=== PATIENT | male | born 1950 | race Caucasian/White ===

== ENCOUNTER 2019-11-16 21:10 | Inpatient (IN) | payer MEDICARE ==
[~2019-11-16 21:10] MED LIST: Iopamidol-370 76% 500 ML 1 ML ONE
[2019-11-16 21:30] LABS: #Basophils 0.1 thou/uL (0.0-0.2); #Monocytes 0.9 thou/uL (0.11-0.59); #Neutrophils 10.1 thou/uL (1.40-6.50); %Basophils 0.4 % (0.0-1.0); %Eosinophils 0.4 % (0.0-10.0); %Monocytes 7.2 % (0.0-10.0); Hemoglobin 15.1 g/dL (14.0-18.0); Mean Corpuscular Hemoglobin 28.9 pg (27.0-31.0); Mean Corpuscular Volume 90.1 fL (78.0-98.0); Mean Platelet Volume 8.5 fL (7.4-10.4); Platelet Count 273 thou/uL (130-400); RBC Distribution Width 12.8 % (11.5-14.5); Red Blood Cell (RBC) Count 5.23 mill/uL (4.70-6.10); White Blood Cell (WBC) Count 13.1 thou/uL (4.8-10.8)
[2019-11-16 21:39] LABS: PTT 35.8 SEC (22.9-36.1); Prothrombin Time 13.6 SEC (12.0-14.7)
[2019-11-16 21:41] LABS: ALT (SGPT) 14 U/L (8-55); AST (SGOT) 14 U/L (5-34); Albumin 4.3 g/dL (3.4-4.8); Alkaline Phosphatase 98 U/L (40-110); Anion Gap 12 mmol/L (10-20); BUN (Urea Nitrogen) 11 mg/dL (8.4-25.7); Bilirubin, Total 0.9 mg/dL (0.2-1.2); CK (CPK) 87 U/L (30-200); Calc. Creatinine Clearance 0 mL/min (70-130); Calcium 9.4 mg/dL (7.8-10.44); Carbon Dioxide 27 mmol/L (23-31); Chloride 105 mmol/L (98-107); Estimated GFR-MDRD 79; Globulin 3.1 g/dL (2.4-3.5); Glucose 107 mg/dL (80-115); Potassium 4.2 mmol/L (3.5-5.1); Protein, Total 7.4 g/dL (5.8-8.1); Sodium 140 mmol/L (136-145)
--- NOTE | 2019-11-16 21:54 | CT ---
Exam: Head CT without contrast HISTORY: Left facial numbness and ataxia. Level 2 stroke. Onset this morning. COMPARISON: none FINDINGS: Hemorrhage: No intraparenchymal hemorrhage or extra-axial hematoma. Brain parenchyma: Cortical [place]-white matter differentiation is preserved. No mass effect or midline shift. Basilar cisterns are patent.Minimal white matter hypodensities due to chronic small vessel ischemic change. Ventricular system: Ventricles and sulci are patent and symmetric. Calvarium: Intact. Sinuses and mastoid air cells: Minimal mucosal thickening of the paranasal sinuses IMPRESSION: No acute intracranial process. Results of study discussed with Dr. Moreland 11/16/2019 9:50 PM Code CR
[2019-11-16 22:07] LABS: CKMB 2.5 ng/mL (0-6.6)
[2019-11-16] MEDS ORDERED: Aspirin Chewable 81 MG TAB ONE (22:20)
--- NOTE | 2019-11-17 01:54 | HP ---
TIME OF ASSESSMENT: 2330 hours. CHIEF COMPLAINT: Left-sided weakness and numbness. HISTORY OF PRESENT ILLNESS: Mr. Ochoa is a 69-year-old gentleman with a known history of coronary artery disease, who has actually had an OH in the past and underwent a CABG x4, presenting with progressively and persisting left-sided numbness and weakness. The patient states he first noted his symptoms early hours this morning, when he got up to use the bathroom. He recently fractured his left lower leg and underwent surgery in September. He has his foot in a boot and has been able to walk with the help of a walker. The patient states he noticed some left upper extremity weakness with difficulty gripping onto the walker as he was moving to the bathroom. He also noted that his left leg was heavier than normal, and he was unable to pick it up causing him to drag the leg. The patient states he was not moving as quickly as he normally does with a walker, therefore did not make it to the bathroom on time. Though he does suffer from urinary urgency, he does not have issues with incontinence. When attempting to walk back to bed, he turned around and fell backwards hitting the back of his head against the wall. The patient did not lose any consciousness. He states he did not sustain any major injury, but states it was due to the weakness in his left upper extremity. He was able to get himself up and back into bed. The patient states he noted slight worsening in the weakness with numbness, affecting his left upper extremity. Later that morning, he spoke to his daughter around noon and told her about the events that had happened that morning. He states by then his symptoms had continued to gradually worsen. The patient is a poor historian, unable to exactly pinpoint in which way it had changed or worsened. While en route to the Emergency Department, the patient was unable to lift his arm. He also noted some numbness and tingling on the left side of his face. His daughter denies noting any facial droop. The patient has not had any slurred speech. The sensation has returned to his face, and he has not experienced any visual changes or dizziness. Since being in the Emergency Department, he has had further weakness of his left upper extremity and left lower extremity, no longer able to lift either one. Daughter states they are both anti-medications. He was recommended a statin and aspirin in the past following his OH. However, the patient did not have the prescriptions filled. They state he is agreeable to take any medications while in the hospital, however, will absolutely not take any medications at home nor fill any prescriptions given to him. ED COURSE: He has undergone a CT of the head, which shows no acute intracranial process. He was given of aspirin. A CT angiogram of the head and neck has been done. Report is pending. LABORATORY DATA: Laboratory studies have been done showing a white count of 13.1, hemoglobin 15.1, hematocrit 47.1, PT 13.6, and INR 1. Sodium 140, potassium 4.2, BUN 11, creatinine 0.95, GFR 79, glucose 107, and calcium 9.4. LFTs unremarkable. CK 87, CK-MB 2.5, troponin 0.033. Albumin 4.3. PAST MEDICAL HISTORY: 1. Coronary artery disease. 2. Previous OH. PAST SURGICAL HISTORY: 1. CABG x4. 2. Recent surgery following left lower tib-fib fracture in September 2019. SOCIAL HISTORY: The patient lives alone. He reports smoking one pack of cigarettes per day for several years. Reports occasional alcohol and occasionally he smokes marijuana. FAMILY HISTORY: Noncontributory. ALLERGIES: NO KNOWN DRUG ALLERGIES. CURRENT MEDICATIONS: None. PHYSICAL EXAMINATION: GENERAL: The patient appears thin, well developed, well nourished, he is in no acute distress. VITAL SIGNS: Temperature 97.9, pulse 80, blood pressure 175/65, respirations 18, and O2 saturation 98% on room air. HEENT: Normocephalic and atraumatic. Pupils are equal, round, and reactive to light. Extraocular movements intact. Oropharynx is clear. NECK: Supple. Full range of motion. No cervical spine tenderness. No tongue deviation. LUNGS: Clear to auscultation bilaterally without any wheezes, rales, or rhonchi. CARDIAC: Regular rate and rhythm. ABDOMEN: Soft, nontender, and nondistended. Normoactive bowel sounds present. No guarding or rigidity. No renal angle tenderness. EXTREMITIES: Slight swelling to the left lower extremity due to recent surgery, essentially stable per patient. Slight trace edema to the right lower extremity. The patient states this is chronic as well. NEUROLOGIC: Alert and oriented x3. Speech normal. Facial movements normal. Reports slightly reduced sensation on the left side of his face including forehead, cheek, and chin. Complete weakness of the left upper extremity. Slight movement in all fingers of his left hand, but power is 2/5. Unable to lift his arm. Power and sensation intact in the right upper extremity. Unable to lift his left lower leg. Able to plantar flex at about 2/5 in the left lower extremity. Sensation and power intact in the right lower extremity. Unable to assess his gait. INVESTIGATIONS: As mentioned above. IMPRESSION AND PLAN: Mr. Ochoa is a 69-year-old gentleman, who presents with progressively worsening and persisting left arm and leg weakness since early hours this morning. The patient has been given aspirin in the Emergency Department. He is agreeable to continue with aspirin and statin while he is here, but does not plan to take these once he is discharged. The patient has undergone a CT of the brain, which was unremarkable. CT angiogram report is pending. We will order MRI of the brain, neuro consult, echo, fasting lipid panel in the morning. The patient will be admitted to Stroke Unit. He has known history of coronary artery disease, but he is noncompliant with medications recommended in the past. Troponin is slightly bumped at 0.033. We will continue to trend troponin. No chest pain and EKG in the ED showed normal sinus rhythm, no ST-changes or T-wave abnormalities. The patient's case was discussed with Dr. Marcum, who agrees with plan of care as described above. We will give famotidine for GI prophylaxis. Code status, full. Surrogate decision maker is his daughter, Harvey Dimas. Job ID: [id number]
[2019-11-17] MEDS ORDERED: Melatonin 3 MG TAB PO SCH (03:00)
[2019-11-17] MEDS: Sodium Chloride 0.9% 1,000 ML IV SCH ×2 (04:27→13:25)
[2019-11-17 05:02] LABS: #Basophils 0.1 thou/uL (0.0-0.2); #Eosinphils 0.1 thou/uL (0.0-0.7); #Lymphocytes 2.2 thou/uL (1.20-3.40); #Monocytes 1.1 thou/uL (0.11-0.59); #Neutrophils 8.3 thou/uL (1.40-6.50); %Basophils 0.5 % (0.0-1.0); %Eosinophils 1.2 % (0.0-10.0); %Lymphocytes 18.4 % (21.0-51.0); %Monocytes 9.3 % (0.0-10.0); %Neutrophils 70.6 % (42.0-75.0); Hemoglobin 13.9 g/dL (14.0-18.0); Mean Corpuscular HGB CONC 31.9 g/dL (32.0-36.0); Mean Corpuscular Hemoglobin 28.7 pg (27.0-31.0); Mean Platelet Volume 8.7 fL (7.4-10.4); Platelet Count 249 thou/uL (130-400); RBC Distribution Width 12.6 % (11.5-14.5); Red Blood Cell (RBC) Count 4.84 mill/uL (4.70-6.10); White Blood Cell (WBC) Count 11.8 thou/uL (4.8-10.8)
[2019-11-17 05:21] LABS: Anion Gap 13 mmol/L (10-20); BUN (Urea Nitrogen) 10 mg/dL (8.4-25.7); Calc. Creatinine Clearance 0 mL/min (70-130); Calcium 9.2 mg/dL (7.8-10.44); Carbon Dioxide 24 mmol/L (23-31); Cardiac Risk 4.4 (Less than 4.5); Chloride 105 mmol/L (98-107); Cholesterol 157 mg/dl (< 200 Desired); Estimated GFR-MDRD 86; Glucose 97 mg/dL (80-115); HDL Cholesterol 36 mg/dL (>60 Neg Risk); LDL Cholesterol, Calculated 97 mg/dL; Potassium 3.7 mmol/L (3.5-5.1); Sodium 138 mmol/L (136-145); Triglycerides 121 mg/dL (Less than 150)
[2019-11-17 06:28] VITALS: BMI 23.6
--- NOTE | 2019-11-17 08:06 | CT ---
EXAM: CT ANGIOGRAM OF THE HEAD AND NECK INDICATION: Stroke COMPARISON: None TECHNIQUE: CT angiogram of the head and neck are performed in the axial plane. Three-dimensional refo rmatted images are submitted for interpretation. FINDINGS: CTA OF THE HEAD WITH AND WITHOUT CONTRAST: POSTCONTRAST CT OF BRAIN: Pathologic enhancement: No pathologic enhancement the brain. CTA OF THE BRAIN: Intracranial internal carotid arteries:Symmetric and appropriate enhancement/luminal diameter of the distal cervical and petrous segment of both intracranial internal carotid arteries. There is atherosclerosis involving both cavernous and paraclinoid segments. There does appear to be short segm ent moderate stenosis of the left and right cavernous segment. Anterior circulation: Symmetric enhancement and luminal diameter the A1 segments, M1 segments, proxim al A2 segments and proximal MCA branches. Intracranial vertebral arteries: Patent with appropriate enhancement and luminal diameter. Bilateral PICA artery origins are unremarkable. Both vertebral arteries supply a normal caliber basilar artery. Posterior circulation: Appropriate enhancement and luminal diameter of the basilar artery. Bilateral P1 segments have appropriate enhancement and luminal diameter. IMPRESSION: 1. No hemodynamically significant stenosis, occlusion or aneurysmal formation, the level [place]. 2. Moderate short segment stenosis involving the cavernous segment of both intracranial internal [place] arteries. Transcribed Date/Time: 11/16/2019 11:52 PM
[2019-11-17] MEDS: Famotidine 20 MG TAB PO SCH ×2 (09:43→21:57)
[2019-11-17] MEDS: Aspirin 81 mg Enteric Coated Tablet PO SCH (09:43)
--- NOTE | 2019-11-17 10:23 | MRI ---
MRI BRAIN NONCONTRAST: DATE: 11/17/2019 HISTORY: 69-year-old male with stroke. Complete left-sided weakness. COMPARISON: No prior MRIs. FINDINGS: Images are degraded by patient motion. There is an approximately 1.7 x 0.8 cm focus of moderately hyp erintense T2 signal, with strongly restricted diffusion, in the lateral aspect of the right thalamus, at the junction with the posterior limb of the internal capsule. No associated hemorrhage. No mass e ffect, midline shift, or extra-axial fluid collection. Mild chronic ischemic white matter changes. Ve ntricles are normal in size and configuration. Flow-voids are maintained in the major arteries of the [place]. IMPRESSION: Acute infarction in the right thalamus at junction with posterior limb of right internal capsule. RODOLFO Watters POS: TPC
--- NOTE | 2019-11-17 15:06 | PDOC.HOSPP ---
- Subjective Encounter Date: 11/17/19 Encounter Time: 15:04 Subjective: Patient is still unable to move left arm and left leg. Stated that on Thursday he went out, then got very tired and achy a ll over the following day. Took some hydrocodone. Next morning he fell in the bathroom. He called EMS, they told him he had no stroke symptoms. He went to hospital anyways after getting second opinion. He takes aspirin for an CA, does not take statin. He doesn't understand what caused his stroke Reports history of neuropathy for five years, doesn't know the cause Patient lives 65 miles from [place], is nervous about rehab. He was getting PT as an outpatient already for a leg fracture - Objective Vital Signs & Weight: Vital Signs (12 hours) Temp Pulse Resp BP BP BP Pulse Ox 11/17/19 12:26 97.2 F L 70 14 135/73 94 L 11/17/19 09:46 134/60 124/74 11/17/19 09:35 96 11/17/19 07:13 97.6 F 75 18 120/74 96 Weight Weight 174 lb 3.2 oz I&O: 11/16/19 11/17/19 11/18/19 06:59 06:59 06:59 Output Total 100 Balance -100 Result Diagrams: 11/17/19 04:33 11/17/19 04:33 Additional Labs: Accuchecks 11/16/19 21:23 POC Glucose 91 Hospitalist ROS - Medication Medications: Active Medications Generic Name Dose Route Start Last Admin Trade Name Giovanniq PRN Reason Stop Dose Admin Aspirin 81 mg 11/17/19 09:00 11/17/19 09:43 Ecotrin PO 81 mg DAILY LAKSHMI Administration Famotidine 20 mg 11/17/19 09:00 11/17/19 09:43 Pepcid PO 20 mg BID LAKSHMI Administration Sodium Chloride 1,000 mls @ 75 mls/hr 11/16/19 23:45 11/17/19 13:25 Normal Saline 0.9% IV Not Given .[id number] LAKSHMI - Exam General Appearance: NAD, awake alert Eye: PERRL, anicteric sclera ENT: normocephalic atraumatic, no oropharyngeal lesions Neck: supple, symmetric, no JVD, no thyromegaly Heart: RRR, no murmur, no gallops, no rubs, normal peripheral pulses Respiratory: CTAB, no wheezes, no rales, no ronchi Gastrointestinal: soft, non-tender, non-distended, normal bowel sounds Extremities: no cyanosis, no clubbing, no edema Skin: normal turgor, no lesions, no rashes Neurological: cranial nerve grossly intact Neurological - other findings: left upper extremity 0/5. LLE 0/5 Hosp A/P - Plan This is 69 year old male with history of CA in the past who presented after a fall/ Found to have left sided weakness, admitted for stroke Acute right thalamus infarct - started aspirin 81, atorvastatin 40 mg - neuro consult pending - ECHO done and pending - check TSh, Hba1C - monitor on telemetry - PT/OT, will need rehab CAD s/p CA in the past - continue aspirin and statin Leukocytosis - improving, will monitor Elevated troponin - no chest pain currently - ECHO pending - will trend Dispo: will need inpatient rehab
[2019-11-17 15:54] LABS: Hemoglobin A1c 5.7 % (4.0-6.0)
[2019-11-17 16:14] LABS: Syphilis Antibody Nonreactive (Nonreactive); Syphilis Antibody Index 0.04 S/CO (<1.00 Non-Reactive)
--- NOTE | 2019-11-17 21:17 | CON ---
DATE OF CONSULTATION: 11/17/2019 CONSULTING PHYSICIAN: Hospitalist Services. IMPRESSION: 1. Small vessel stroke involving the right thalamus and internal capsule resulting in a fairly significant left hemiparesis and sensory deficit. 2. Aspirin failure. 3. Tobacco use. PLAN: 1. Add Plavix. 2. Add a statin. 3. Discontinue smoking. 4. Rehab transfer. HISTORY OF PRESENT ILLNESS: Mr. Ochoa is a 69-year-old gentleman with a past history of coronary disease. He was taking an aspirin daily. He started noticing some subtle weakness on the left side when he was trying to walk with his walker and he recently fractured his left foot. He continued to ignore the symptoms over the day and went to bed that night. Next day, he felt like the symptoms were a bit worse. He was seen by EMS and initially was not thought to be having any significant problems. Later on that day his daughter thought the situation was worsening and she had him reassessed. They brought him into the hospital for evaluation. His MRI confirmed a right thalamic and internal capsule stroke. His past echocardiogram showed a normal ejection fraction of 60% to 65% 2 years ago. His CTA did not show any proximal vessel stenosis. EKG showed a normal sinus rhythm. His cholesterol ratio was 6.4. He has not seen any significant improvement since his deterioration. PAST MEDICAL HISTORY: Coronary artery disease. ALLERGIES: NONE. SOCIAL HISTORY: Positive for tobacco. No illicit drugs other than marijuana. FAMILY HISTORY: Noncontributory. REVIEW OF SYSTEMS: Ten-system review of systems is otherwise negative. PHYSICAL EXAMINATION: GENERAL: He is a healthy-appearing gentleman sitting at the bedside. No acute distress. VITAL SIGNS: Pulse 75 in a sinus rhythm, respirations 16. HEENT: Pupils equal and reactive. Conjunctivae clear. Oropharynx clear. NECK: Supple. No lymphadenopathy. EXTREMITIES: There are bandages around the left leg with some ecchymosis of the toes. NEUROLOGIC: He was alert and cooperative. Speech is fluent and clear. He has some subtle left facial weakness. Sensation was decreased in a patchy area of the face and arm. He had no antigravity strength in the left arm. He had some weak movement in the left leg that was against gravity. Gait was not tested. No abnormal movements were seen. SUMMARY: This is a 69-year-old gentleman with a small vessel stroke that progressed over a 2 day interval. His deficits are quite severe at this point. We would continue his aspirin, add Plavix and a statin to address his hyperlipidemia and plan on transferring him to rehab. Job ID: [id number]
[2019-11-17] MEDS: Atorvastatin Calcium 40 MG TAB PO SCH (21:57)
[2019-11-18] MEDS: Sodium Chloride 0.9% 1,000 ML IV SCH ×2 (01:25→16:39)
[2019-11-18] MEDS: Lisinopril 2.5 MG TAB PO SCH (08:23)
[2019-11-18] MEDS: Aspirin 81 mg Enteric Coated Tablet PO SCH (08:23)
[2019-11-18] MEDS: Clopidogrel Bisulfate 75 MG TAB PO SCH (08:24)
[2019-11-18] MEDS: Famotidine 20 MG TAB PO SCH ×2 (08:24→20:48)
[2019-11-18] MEDS ORDERED: Metoprolol Tartrate 25 MG TAB PO SCH (09:00)
--- NOTE | 2019-11-18 10:26 | CON ---
DATE OF CONSULTATION: 11/18/2019 REASON FOR CONSULTATION: Ischemic cardiomyopathy. HISTORY OF PRESENT ILLNESS: Mr. Ochoa is a 69-year-old gentleman, who recently presented with CVA. Mr. Ochoa has a previous history of CAD, status post bypass surgery x4 after having a non-Q-wave OR. This was 17 years ago (2002). He underwent coronary angiography by Dr. Raf Mahan and underwent bypass surgery by . His LVEF in 2003 was 30% to 35% with posterior wall akinesis. The patient denies shortness of breath, chest pain, pressure, or associated symptoms. He recently presented with left-sided weakness. He has weaned himself off all medications shortly after bypass surgery. He has not been seen or evaluated by Cardiology in 17 years. PAST MEDICAL HISTORY: As above including recent surgery for tib-fib fracture. MEDICATION: None. SOCIAL HISTORY: Positive for tobacco use. ALLERGIES: NONE. HOME MEDICATIONS: None. REVIEW OF SYSTEMS: A 10-point review of systems is reviewed as above, otherwise negative. PHYSICAL EXAMINATION: VITAL SIGNS: Blood pressure 150/69, pulse 67, temperature 98.3. GENERAL: Patient is a pleasant male who is in no acute distress. The patient appears their stated age. NEUROLOGIC: Left sided weakness. HEENT: Sclerae without icterus. Mouth has moist mucous membranes with normal pallor. NECK: No JVD. Carotid upstroke brisk. No bruits bilaterally. LUNGS: Clear to auscultation with unlabored respirations. BACK: No scoliosis or kyphosis. CARDIAC: Regular rate and rhythm with normal S1 and S2. No S3 or S4 noted. No significant rubs, murmurs, thrills, or gallops noted throughout the precordium. PMI is not displaced. There is no parasternal heave. ABDOMEN: Soft, nontender, nondistended. No peritoneal signs present. No hepatosplenomegaly. No abnormal striae. EXTREMITIES: 2+ femoral and 2+ dorsalis pedis pulses. No cyanosis, clubbing, or edema. SKIN: No gross abnormalities. EKG shows normal sinus rhythm with inferior infarct, age old. Telemetry monitoring shows four beats of nonsustained VT. IMPRESSION: 1. Chronic ischemic cardiomyopathy. 2. Recent cerebrovascular accident. 3. Tobacco abuse. 4. Noncompliance. RECOMMENDATIONS: I had a long discussion with Mr. Ochoa on how to proceed from a CV standpoint. I would recommend HERNAN inhibitor therapy, beta-blaze therapy, statin, aspirin and Plavix per Dr. Chris Faustin's recommendation. Mr. Ochoa is unsure whether he is prepared to start taking medications again. I also discussed LifeVest with Mr. Ochoa. Recommend LifeVest for three months given that he is not on any medications for LVEF improvement. Again, he is very reluctant to proceed with LifeVest. From my standpoint, the patient is not interested in medical therapy or LifeVest would not have any additional recommendations. He is to discuss the case with his family and let the nurse know how he has opted. Also discussed the case with Dr. Bell. Otherwise, I have no further recommendations. Job ID: [id number]
--- NOTE | 2019-11-18 11:07 | PDOC.HOSPP ---
- Subjective Encounter Date: 11/18/19 Encounter Time: 11:06 Subjective: The patient's weakness is better. He is able to lift up his left arm and left leg some today. No shortness of breath or chest pain. He was seen by cardiology today, declined life vest. Advised him to take aspirin , plavix, statin, metoprolol, lisinopril. He would like a handout of these medications. He says he will take them during rehab, but will not promise to take them after rehab. He also is not sure he will see a founder and ceo on discharge, but will consider seeing a primary care doctor. Says he has a lot of "thinking to do." Patient does admit to smoking. He will consider nicotine patch on d/c if he has bad cravings. He is very interested in going to rehab - Objective Vital Signs & Weight: Vital Signs (12 hours) Temp Pulse Resp BP BP Pulse Ox 11/18/19 08:28 94 L 11/18/19 08:23 71 152/69 H 11/18/19 07:00 98.3 F 67 16 152/69 H 94 L 11/18/19 03:14 98.9 F 71 18 144/74 H 96 11/17/19 23:40 97.9 F 72 18 133/69 97 Weight Weight 174 lb 3.2 oz I&O: 11/17/19 11/18/19 11/19/19 06:59 06:59 06:59 Intake Total 1340 Output Total 700 Balance 640 Result Diagrams: 11/17/19 04:33 11/17/19 04:33 Hospitalist ROS - Review of Systems Constitutional: denies: fever, chills - Medication Medications: Active Medications Generic Name Dose Route Start Last Admin Trade Name Freq PRN Reason Stop Dose Admin Aspirin 81 mg 11/17/19 09:00 11/18/19 08:23 Ecotrin PO 81 mg DAILY LAKSHMI Administration Atorvastatin Calcium 40 mg 11/17/19 21:00 11/17/19 21:57 Lipitor PO 40 mg HS LAKSHMI Administration Clopidogrel Bisulfate 75 mg 11/18/19 09:00 11/18/19 08:24 Plavix PO 75 mg DAILY LAKSHMI Administration Famotidine 20 mg 11/17/19 09:00 11/18/19 08:24 Pepcid PO 20 mg BID LAKSHMI Administration Sodium Chloride 1,000 mls @ 75 mls/hr 11/16/19 23:45 11/18/19 01:25 Normal Saline 0.9% IV 1,000 mls .[id number] LAKSHMI Administration Lisinopril 2.5 mg 11/18/19 09:00 11/18/19 08:23 Zestril PO 2.5 mg DAILY LAKSHMI Administration - Exam General Appearance: NAD, awake alert Eye: PERRL, anicteric sclera ENT: normocephalic atraumatic, no oropharyngeal lesions Neck: no JVD Heart: RRR, no murmur, no gallops, no rubs Respiratory: CTAB, no wheezes, no rales, no ronchi Gastrointestinal: soft, non-tender, non-distended, normal bowel sounds Extremities: no cyanosis, no clubbing, no edema Skin: no lesions, no rashes Neurological - other findings: LUE 4/5, LLE 4/5, RUE 5/5, RLE 5/5. Reflexes 2+ bilaterally Musculoskeletal - other findings: HERNAN bandage on left leg Psychiatric: normal affect, normal behavior, A&O x 3 Hosp A/P - Plan CT brain: no acute disease CTA head: moderate stenosis involving both intracranial internal carotid arteries MRI brain: acute infarction in the right thalamus with posterior limb of internal capsule This is 69 year old male with history of ID in the past who presented after a fall/ Found to have left sided weakness, admitted for stroke Acute right thalamus infarct - started aspirin 81, atorvastatin 40 mg. Added plavix per neurology recommendations - ECHO showed EF 30-35%, mild MR, mild TR, inferolateral akinesis. 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 Cardiology consulted, patient declined life vest - continue aspirin, statin, plavix - add metoprolol 12.5 mg daily, lisinopril 2.5 mg daily - needs to follow up with founder and ceo as an outpatient CAD s/p CABG - continue aspirin and statin Prediabetes - HbA1C 5.7. Needs outpatient monitoring Leukocytosis - improving, will monitor Elevated troponin - no chest pain currently - ECHO pending - will trend Tobacco abuse -advised on smoking cessation Dispo: will need inpatient rehab, he is stable for discharge
[2019-11-18 17:27] LABS: ANA Symphony (Qualitative) Negative (Negative); ANA Symphony (Quantitative) 0.3 Ratio (< 0.7 Negative); dsDNA IgG Antibody 4.7 IU/mL (<10 Negative)
[2019-11-18] MEDS: Nicotine 14 MG PATCH TD SCH (19:04)
[2019-11-18] MEDS: Atorvastatin Calcium 40 MG TAB PO SCH (20:48)
[2019-11-18] MEDS ORDERED: Cyclobenzaprine 10 MG TAB PO SCH (23:30)
[2019-11-19] MEDS: Clopidogrel Bisulfate 75 MG TAB PO SCH (08:38)
[2019-11-19] MEDS: Lisinopril 2.5 MG TAB PO SCH (08:38)
[2019-11-19] MEDS: Aspirin 81 mg Enteric Coated Tablet PO SCH (08:38)
[2019-11-19] MEDS: Carvedilol 3.125 MG TAB PO SCH ×2 (08:38→15:55)
[2019-11-19] MEDS: Famotidine 20 MG TAB PO SCH (08:38)
[2019-11-19] MEDS ORDERED: Lisinopril 2.5 MG TAB PO SCH (09:00)
--- NOTE | 2019-11-19 15:19 | PDOC.HOSPP ---
- Subjective Encounter Date: 11/19/19 Encounter Time: 15:17 Subjective: Mr. Ochoa was seen today in follow-up of right Thalamic CVA. He does not have any new complaints. - Objective Vital Signs & Weight: Vital Signs (12 hours) Temp Pulse Resp BP BP Pulse Ox 11/19/19 11:35 98.1 F 72 20 160/86 H 100 11/19/19 11:20 67 161/74 H 11/19/19 08:38 67 161/74 H 11/19/19 08:04 97.7 F 67 16 161/74 H 97 11/19/19 05:25 151/72 H 11/19/19 04:00 98 F 71 16 192/85 H 99 Weight Weight 174 lb 3.2 oz I&O: 11/18/19 11/19/19 11/20/19 06:59 06:59 06:59 Intake Total 1340 450 Output Total 700 Balance 640 450 Result Diagrams: 11/17/19 04:33 11/17/19 04:33 Hospitalist ROS - Medication Medications: Active Medications Generic Name Dose Route Start Last Admin Trade Name Giovanniq PRN Reason Stop Dose Admin Aspirin 81 mg 11/17/19 09:00 11/19/19 08:38 Ecotrin PO 81 mg DAILY LAKSHMI Administration Atorvastatin Calcium 40 mg 11/17/19 21:00 11/18/19 20:48 Lipitor PO 40 mg HS LAKSHMI Administration Carvedilol 3.125 mg 11/19/19 08:00 11/19/19 08:38 Coreg PO 3.125 mg BID-WM LAKSHMI Administration Clopidogrel Bisulfate 75 mg 11/18/19 09:00 11/19/19 08:38 Plavix PO 75 mg DAILY LAKSHMI Administration Famotidine 20 mg 11/17/19 09:00 11/19/19 08:38 Pepcid PO 20 mg BID LAKSHMI Administration Lisinopril 5 mg 11/19/19 09:00 11/19/19 11:20 Zestril PO Not Given BID LAKSHMI Nicotine 14 mg 11/18/19 17:00 11/18/19 19:04 Nicoderm Patch TD 14 mg Q24HR LAKSHMI Administration - Exam Eye: PERRL Heart: RRR, no murmur, no gallops, no rubs, normal peripheral pulses Respiratory: CTAB, no wheezes, no rales, no ronchi, normal chest expansion Gastrointestinal: soft, non-tender, non-distended, normal bowel sounds, no palpable masses, no hepatomegaly Extremities: no cyanosis, no clubbing, no edema Neurological: hemiplegia (Left hemiplegia) Hosp A/P (1) Acute CVA (cerebrovascular accident) Code(s): I63.9 - CEREBRAL INFARCTION, UNSPECIFIED Status: Acute (2) Hypertension Code(s): I10 - ESSENTIAL (PRIMARY) HYPERTENSION Status: Chronic (3) Dyslipidemia Code(s): E78.5 - HYPERLIPIDEMIA, UNSPECIFIED Status: Chronic (4) CAD (coronary artery disease) Code(s): I25.10 - ATHSCL HEART DISEASE OF [place] CORONARY ARTERY W/O ANG PCTRS Status: Chronic - Plan * Acute CVA- continue Aspirin, Plavix, and lipitor * Chronic systolic heart failure- continue Coreg, and Lisionpril * HTN- blood pressure has been a bit labile- will monitor * Continue PT/OT * Awaiting Rehab transfer
[2019-11-19] MEDS: Nicotine 14 MG PATCH TD SCH (15:55)
[2019-11-19 16:29] VITALS: BP 155/79; TEMP 97.1
[2019-11-19] MEDS ORDERED: Cyclobenzaprine 10 MG TAB PO SCH (21:00)
--- NOTE | 2019-11-21 12:33 | DIS ---
DATE OF ADMISSION: 11/16/2019 DATE OF DISCHARGE: 11/19/2019 DISCHARGE DISPOSITION: To inpatient rehab. DISCHARGE DIAGNOSES: 1. Acute right thalamic infarct. 2. Hypertension. 3. History of coronary artery disease. 4. Dyslipidemia. 5. Chronic systolic heart failure. DISCHARGE MEDICATIONS: Include, 1. Nicoderm patch 14 mg daily. 2. Lisinopril 5 mg twice a day. 3. Pepcid 20 mg twice daily. 4. Flexeril 10 mg at bedtime. 5. Plavix 75 mg daily. 6. Carvedilol 3.125 mg twice daily. 7. Lipitor 40 mg at bedtime. 8. Aspirin 81 mg a day. CODE STATUS: Full code. ALLERGIES: NO KNOWN DRUG ALLERGIES. IMAGING STUDIES: During his hospital stay, the patient had a CT cahto of [place] showing no hemodynamically significant stenosis, occlusion, or aneurysm at the level of the cahto of [place]. There was a moderate short stenosis involving the cavernous segment of both intracranial internal carotid arteries. The patient had an echocardiogram, in which, the ejection fraction was estimated at 30% to 35%. There was grade 1/3 diastolic dysfunction and some aortic valve sclerosis. The patient had an MRI of the brain, in which, there was an acute infarct in the right thalamus at the junction of the posterior limb of the right internal capsule. HOSPITAL COURSE: Mr. Ochoa is a pleasant 69-year-old gentleman, who presented to the emergency room with left-sided hemiparesis with also weakness and numbness. He was evaluated and found to have an acute right thalamic infarct. He was started on aspirin and Plavix as well as Lipitor. The patient had an echocardiogram done in the workup and was found to have chronic systolic heart failure with an EF of 30% to 35%. He was evaluated by the Cardiology Team. It was recommended that he be fitted to have a LifeVest. However, the patient refused this and he also told both myself and the previous physician that he plans to not take the prescribed medications once he leaves rehab. He says he does not believe in medications and will take his risks with regard to future stroke. He said he did the same thing when he had a heart attack and bypass surgery. He says he took himself off all medications and has done well for 20 years. I did explain the benefits of the medications including potentially improving his ejection fraction. The beta blockers use with regard to reduce the risk of arrhythmias and also I explained the purpose of the LifeVest with regard to prevent sudden . He voiced understanding of all of this, but says that he will exercise his right to refuse medications. Given this, once the patient was stabilized, he is being transferred to the inpatient rehabilitation unit today. Job ID: [id number]
== END 2019-11-19 19:20 | DRG 65 ==
LOC: ERS 21:10 → ERHOLD 23:14 → OBSVTOIN 23:42 → 2SE 11-17 00:14
PROVIDERS: ADMIT Hospitalist; ATTEND Emergency Medicine
DX: I63.9 Cerebral infarction, unspecified (principal); I50.22 Chronic systolic (congestive) heart failure; G81.94 Hemiplegia, unspecified affecting left nondominant side; I11.0 Hypertensive heart disease with heart failure; I25.10 Atherosclerotic heart disease of native coronary artery without angina pectoris; E78.5 Hyperlipidemia, unspecified; I25.2 Old myocardial infarction; Z95.1 Presence of aortocoronary bypass graft; R40.2412 Glasgow coma scale score 13-15, at arrival to emergency department; R20.0 Anesthesia of skin; F17.210 Nicotine dependence, cigarettes, uncomplicated; R79.89 Other specified abnormal findings of blood chemistry; I25.5 Ischemic cardiomyopathy; R73.03 Prediabetes; Z71.6 Tobacco abuse counseling; Z91.14 Patient's other noncompliance with medication regimen; W18.39XA Other fall on same level, initial encounter; Y93.89 Activity, other specified; Y92.092 Bedroom in other non-institutional residence as the place of occurrence of the external cause
CPT/HCPCS: 36415; 36416; 70450; 70496; 70551; 80048; 80053; 80061; 82550; 82553; 82607; 83036; 84443; 84484; 85025; 85610; 85730; 86038; 86225; 86780; 93005; 93306; Q9967

== ENCOUNTER 2020-03-22 17:31 | Inpatient (IN) | payer MEDICARE ==
[2020-03-22 18:14] LABS: #Eosinphils 0.1 thou/uL (0.0-0.7); #Lymphocytes 1.6 thou/uL (1.20-3.40); #Monocytes 0.6 thou/uL (0.11-0.59); %Basophils 0.5 % (0.0-1.0); %Eosinophils 1.6 % (0.0-10.0); %Monocytes 7.6 % (0.0-10.0); %Neutrophils 71.4 % (42.0-75.0); Hemoglobin 14.4 g/dL (14.0-18.0); Mean Corpuscular HGB CONC 32.3 g/dL (32.0-36.0); Mean Platelet Volume 7.6 fL (7.4-10.4); Platelet Count 262 thou/uL (130-400); RBC Distribution Width 12.9 % (11.5-14.5); Red Blood Cell (RBC) Count 4.79 mill/uL (4.70-6.10); White Blood Cell (WBC) Count 8.3 thou/uL (4.8-10.8)
[2020-03-22] MEDS ORDERED: Morphine 4 MG/ML VIAL ONE (18:24)
[2020-03-22] MEDS ORDERED: Vancomycin 1 GM/200 ML BAG ONE (18:24)
[2020-03-22] MEDS ORDERED: Piperacillin/Tazobactam 4.5 GM VIAL ONE (18:24)
--- NOTE | 2020-03-22 18:29 | RAD ---
2 views left tibia/fibula: 03/22/2020 COMPARISON: None HISTORY: Trauma status post ORIF 5 months ago. Over the past 2 weeks the patient reports progressive redness and swelling in the region of the medial malleolus FINDINGS: There is an obliquely oriented fracture of the distal left tibial shaft treated with an int ramedullary ronald with a distal interlocking screw and 2 proximal interlocking screws. There is an obliquely oriented fracture involving the proximal shaft and the distal shaft of the left fibula as w ell. No significant interval healing of these fractures is noted. There is diffuse soft tissue swelling involving the calf. There is a skin defect medial to the medial malleolus consistent with a soft tissue wound. The tibia and fibula distally is osteopenia, likely on the basis of disuse. IMPRESSION: Fracture status post ORIF. Diffuse soft tissue swelling suggesting cellulitis with skin u lceration adjacent to the medial malleolus.
[2020-03-22 18:38] LABS: ALT (SGPT) 17 U/L (8-55); AST (SGOT) 18 U/L (5-34); Albumin 4.5 g/dL (3.4-4.8); Alkaline Phosphatase 99 U/L (40-110); Anion Gap 12 mmol/L (10-20); BUN (Urea Nitrogen) 12 mg/dL (8.4-25.7); Bilirubin, Total 0.7 mg/dL (0.2-1.2); Calc. Creatinine Clearance 0 mL/min (70-130); Calcium 9.9 mg/dL (7.8-10.44); Carbon Dioxide 28 mmol/L (23-31); Chloride 104 mmol/L (98-107); Estimated GFR-MDRD 72; Globulin 3.2 g/dL (2.4-3.5); Glucose 93 mg/dL (80-115); Potassium 3.8 mmol/L (3.5-5.1); Protein, Total 7.7 g/dL (5.8-8.1); Sodium 140 mmol/L (136-145)
--- NOTE | 2020-03-22 21:10 | HP ---
PRIMARY CARE PHYSICIAN: The patient has a primary care in [place], [place], and it is [facility]. CHIEF COMPLAINT: Blistering and redness of my legs. HISTORY OF PRESENT ILLNESS: Mr. Ochoa is a pleasant 69-year-old gentleman, who has a history of coronary artery disease as well as chronic systolic heart failure. His ejection fraction is around 20% to 25% based on echo in October of this year. He had refused LifeVest placement at that time. He says that about 2 weeks ago, he started having some areas of blisters popping up on his legs. He says he thought it might be shingles and so he was trying to wait it out, thinking it would go away on its own. However, it did not and then he looked down and noticed that his legs were becoming more and more swollen and that he had a "puddle of blood in the floor." He denies having any fever or chills. He went to see his primary care provider and was prescribed antibiotics. He cannot remember the name. He says he was on them for about 14 days, but his symptoms did not get any better. He also notes the area on his ankle, which he says is an ulcer that popped up because when he had surgery for his tib-fib fracture, the screws migrated and since then he has had a chronic ulcer in that area. He was evaluated in the ER and had findings concerning for severe cellulitis and possible gangrene and for this reason, he is being admitted. REVIEW OF SYSTEMS: All systems were reviewed and are negative except for that mentioned in the history of present illness. PAST MEDICAL HISTORY: Significant for coronary artery disease, chronic systolic heart failure with an EF of actually 30% to 35% and grade 1/3 diastolic dysfunction, peripheral vascular disease. He has had a previous cerebrovascular accident. PAST SURGICAL HISTORY: He has had bypass grafting tib-fib fracture and repair in 2019 and tonsillectomy. ALLERGIES: NO KNOWN DRUG ALLERGIES. SOCIAL HISTORY: He is . He is a former smoker. He quit in October of this year. He smokes about a pack a day for the last 50 years. Denies any alcohol use. He has one child and he wants to be a DNR. FAMILY HISTORY: Significant for mother, who had cerebrovascular disease. CURRENT MEDICATIONS: He is not sure of the names and doses. These will need to be reconciled, but he says he has been compliant on his medicines. When he was discharged back in October, he had been on: 1. Plavix 75 mg daily. 2. Carvedilol 3.125 mg twice daily. 3. Lipitor 40 mg at bedtime. 4. Aspirin 81 mg a day. 5. Lisinopril 5 mg twice a day. 6. Nicoderm patch. 7. Pepcid 20 mg twice a day. PHYSICAL EXAMINATION: GENERAL: He is alert and oriented. He appears to be in no acute distress. He is well developed and well nourished, however, he does appear to be chronically ill. VITAL SIGNS: Blood pressure was 162/90, heart rate of 80, respiratory rate of 16, temperature is 98.2, and O2 saturation is 100% on room air. HEENT: Pupils are equal, round, and reactive. Extraocular muscles are intact. His sclerae anicteric. Throat, there is no erythema, no exudates. NECK: No adenopathy. No bruits. LUNGS: Clear to auscultation except for some mild rhonchi scattered. CARDIOVASCULAR: He has normal S1, S2. Slight grade 2/6 systolic murmur. ABDOMEN: Obese. It is soft, nontender, and nondistended. Positive for bowel sounds. No rebound. No guarding. No organomegaly. EXTREMITIES: He has bilateral lower extremity edema with erythema on both lower legs, but the left leg is much worse than the right. He has some bullous lesions on the anterior aspect of the barclay, which appear to have some purulent exudate and on the medial malleolus, he has an ulcerative area with purplish black base. He also has some chronic venous stasis changes. NEUROLOGIC: His cranial nerves are intact. Muscle strength is 5/5 in both upper and lower extremities. SKIN AND INTEGUMENT: As previously mentioned. He has chronic venous stasis changes, erythema. However, he does have good capillary refill, but I am unable to palpate either dorsalis pedis or posterior tibial pulse. LABORATORY DATA: Lab results: White blood cell count 8.3, hemoglobin 14.4, hematocrit is 44.6, and platelet count is 262. Sodium 140, potassium 3.8, chloride is 104, CO2 is 28, BUN of 12, creatinine 1.02, glucose is 93. C-reactive protein is 0.68 fibula, he has evidence of an ORIF, some soft tissue swelling suggestive of cellulitis and ulceration around the medial malleolus. ASSESSMENT: This is a pleasant 69-year-old gentleman, who presents to the ER with severe cellulitis of the left lower extremity which has failed outpatient treatment. He also has significant findings of peripheral vascular disease clinically. He will be admitted to the medical floor, started on IV antibiotics for broad-spectrum coverage, and we will place him on vancomycin and Zosyn for now. Culture the wound and consult General Surgery for evaluation. We will also need to get an arterial Dopplers to start and I suspect that he may need a CT angiography or angiography of the lower extremities for further delineation of the circulation. 1. Coronary artery disease. This appears to be clinically stable. We will continue him on his cardiac medications. 2. Chronic systolic heart failure. He still says that if his ejection fraction is low, he will not get a LifeVest. He also wants to be DNR. An echo may be entertained if he requires some type of re-vascularization surgery. Otherwise, we will hold off on this and continue his home medications. 3. History of cerebrovascular accident. This appears to be clinically stable. Job ID: [id number]
[2020-03-22] MEDS ORDERED: Labetalol HCl 100 MG/20 ML VIAL SLOW IVP PRN (21:14)
[2020-03-22] MEDS ORDERED: Acetaminophen 325 MG TAB PO PRN (21:14)
[2020-03-22] MEDS ORDERED: hydrALAZINE 20 MG/ML VIAL SLOW IVP PRN (21:14)
[2020-03-22] MEDS ORDERED: Ondansetron ODT 4 MG TAB PO PRN (21:14)
[2020-03-22] MEDS ORDERED: Vancomycin 1 GM in Premix Bag 1 BAG IVPB SCH (21:14)
[2020-03-22] MEDS ORDERED: Ondansetron PF 4 MG/2 ML Vial IVP PRN (21:14)
[2020-03-22 23:58] VITALS: BMI 24.3
[2020-03-23] MEDS: HYDROcodone/Acetaminophen 5/325 mg Tablet PO PRN ×5 (00:27→18:03)
[2020-03-23] MEDS: Piperacillin/Tazobactam 3.375 GM in Sodium Chloride 0.9% 100 ML IVPB SCH ×4 (00:28→17:55)
[2020-03-23] MEDS: Famotidine 20 MG TAB PO SCH ×3 (00:29→20:52)
[2020-03-23] MEDS ORDERED: traMADol HCl 50 MG TAB PO PRN (01:46)
[2020-03-23] MEDS: traMADol HCl 50 MG TAB PO PRN ×2 (02:32→20:53)
[2020-03-23] MEDS: Vancomycin HCl 1.25 GM in Sodium Chloride 0.9% 250 ML 250 ML IVPB SCH ×2 (04:59→17:55)
[2020-03-23 05:56] LABS: #Eosinphils 0.2 thou/uL (0.0-0.7); #Lymphocytes 1.7 thou/uL (1.20-3.40); #Monocytes 0.6 thou/uL (0.11-0.59); %Basophils 0.1 % (0.0-1.0); %Eosinophils 3.2 % (0.0-10.0); %Lymphocytes 30.6 % (21.0-51.0); %Monocytes 11.3 % (0.0-10.0); %Neutrophils 54.9 % (42.0-75.0); Hemoglobin 11.4 g/dL (14.0-18.0); Mean Corpuscular HGB CONC 32.3 g/dL (32.0-36.0); Mean Corpuscular Hemoglobin 30.3 pg (27.0-31.0); Mean Corpuscular Volume 93.8 fL (78.0-98.0); Mean Platelet Volume 7.7 fL (7.4-10.4); Platelet Count 199 thou/uL (130-400); RBC Distribution Width 12.7 % (11.5-14.5); Red Blood Cell (RBC) Count 3.78 mill/uL (4.70-6.10); White Blood Cell (WBC) Count 5.5 thou/uL (4.8-10.8)
[2020-03-23 06:13] LABS: Anion Gap 9 mmol/L (10-20); BUN (Urea Nitrogen) 12 mg/dL (8.4-25.7); Calc. Creatinine Clearance 78 mL/min (70-130); Calcium 8.4 mg/dL (7.8-10.44); Carbon Dioxide 27 mmol/L (23-31); Chloride 108 mmol/L (98-107); Estimated GFR-MDRD 77; Glucose 103 mg/dL (80-115); Sodium 140 mmol/L (136-145)
[2020-03-23] MEDS: Enoxaparin Sodium 40 MG/0.4 ML SYRINGE SC SCH (08:46)
--- NOTE | 2020-03-23 09:11 | PDOC.EVN ---
Event Note - Event Note Event Note: Patient seen and examined. He has his left leg/foot hanging off the bed secondary to rest pain. He has vascular ulcer/changes to the left lower extremity. I would hold off on any debridement and defer to vascular surgery.
--- NOTE | 2020-03-23 10:34 | ULT ---
RIGHT LOWER EXTREMITY ARTERIOVASCULAR DUPLEX WITH COLOR AND SPECTRAL DOPPLER IMAGING: HISTORY: Redness and swelling and edema. FINDINGS: Only the right lower extremity was evaluated. The patient could not tolerate any additional imaging because of extensive pain and neuropathy. The visualized right common femoral, superficial femoral, profunda femoral, popliteal, and posterior tibial arteries and dorsalis pedis arteries are evaluated. Exam was limited. No significant abnormal high velocities. Relatively abnormal low velocities including the superficia l femoral artery, profunda femoral artery, and posterior tibial arteries with severe decrease in [place] in the popliteal artery and posterior tibial artery. There is biphasic flow of the common fem oral artery and superficial femoral artery with severely limited monophasic flow of the popliteal art jose, posterior tibial artery, and dorsalis pedis artery. IMPRESSION: Severely limited study. Very markedly abnormally decreased velocities including superficial femoral artery, popliteal artery, posterior tibial artery, and dorsalis pedis arteries, evidence for severe r ight lower extremity atherosclerotic arterial vascular disease. Depending upon concern, a followup C T angiogram of the lower extremities might give additional information. POS: [facility]
[2020-03-23] MEDS ORDERED: Iopamidol-370 76% 500 ML 1 ML ONE (12:47)
--- NOTE | 2020-03-23 12:59 | PDOC.HOSPP ---
- Subjective Encounter Date: 03/23/20 Encounter Time: 12:57 Subjective: Mr. Moulton was seen today in follow-up of cellulitis of the right lower extremity. He does not have any new complaints. - Objective Vital Signs & Weight: Vital Signs (12 hours) Temp Pulse Resp BP Pulse Ox 03/23/20 11:30 97.6 F 52 L 18 128/75 96 03/23/20 08:00 98.3 F 69 18 133/78 96 03/23/20 04:45 97.3 F L 72 17 109/57 L 92 L Weight Weight 169 lb 12.095 oz Result Diagrams: 03/23/20 05:34 03/23/20 05:34 Hospitalist ROS - Medication Medications: Active Medications Generic Name Dose Route Start Last Admin Trade Name Freq PRN Reason Stop Dose Admin Hydrocodone Bitart/Acetaminophen 1 tab 03/22/20 21:14 03/23/20 12:10 [place] 5/325 PO 1 tab Q4H PRN Administration Moderate Pain (4-6) Enoxaparin Sodium 40 mg 03/23/20 09:00 03/23/20 08:46 Lovenox SC 40 mg 0900 LAKSHMI Administration Famotidine 20 mg 03/22/20 21:00 03/23/20 08:46 Pepcid PO 20 mg BID LAKSHMI Administration Piperacillin Sod/Tazobactam 100 mls @ 200 mls/hr 03/22/20 23:59 03/23/20 12: 10 Sod 3.375 gm/ Sodium Chloride IVPB 100 mls Q6HR LAKSHMI Administration Vancomycin HCl 1.25 gm/ Sodium 250 mls @ 166.667 mls/hr 03/23/20 05:00 04:59 Chloride IVPB 250 mls 0500,1700 LAKSHMI Administration Tramadol HCl 50 mg 03/23/20 02:26 03/23/20 02:32 Ultram PO 50 mg Q4H PRN Administration Pain - Exam Eye: PERRL, anicteric sclera Heart: RRR, no murmur, no gallops, no rubs, normal peripheral pulses Respiratory: CTAB, no wheezes, no rales, no ronchi, normal chest expansion, no tachypnea Gastrointestinal: soft, non-tender, non-distended, normal bowel sounds, no palpable masses Extremities: 1+ LE edema (+ edema and erythema of the right lower extremity, with some bollous lesions, leg is wrapped, pulses are not palpable) Hosp A/P (1) Cellulitis of right lower extremity Code(s): L03.115 - CELLULITIS OF RIGHT LOWER LIMB Status: Acute (2) Peripheral vascular disease Code(s): I73.9 - PERIPHERAL VASCULAR DISEASE, UNSPECIFIED Status: Acute (3) CAD (coronary artery disease) Code(s): I25.10 - ATHSCL HEART DISEASE OF [place] CORONARY ARTERY W/O ANG PCTRS Status: Chronic (4) Dyslipidemia Code(s): E78.5 - HYPERLIPIDEMIA, UNSPECIFIED Status: Chronic (5) Hypertension Code(s): I10 - ESSENTIAL (PRIMARY) HYPERTENSION Status: Chronic (6) Chronic systolic heart failure Code(s): I50.22 - CHRONIC SYSTOLIC (CONGESTIVE) HEART FAILURE Status: Chronic - Plan * Severe Peripheral Vascular disease with cellulitis of the right lower ectremity- there is no need for surgical debridement * Continue Vancomycin and Zosyn * Arterial dopplers are consistent with severe peripheral vascular disease- will check a CTA with run offs * Consult Vascular surgery * He made need an Echo if surgery is needed- to re-assess his EF ( he does not want an Echo, if surgery is not needed) * CAD- stable * HTN- blood pressure is controlled
--- NOTE | 2020-03-23 15:13 | CT ---
EXAM: CT angiogram abdomen and pelvis with IV contrast and 3-D reconstructions CT angiogram bilateral lower extremities with runoff to the feet with IV contrast and 3-D reconstruct ions PROVIDED CLINICAL HISTORY: Peripheral vascular disease. Multiple painful ulcers left lower extremity after hardware removal. COMPARISON: None FINDINGS: Motion is present at each lung base, but the bases otherwise appear clear. The liver, spleen, pancreas, and bilateral adrenal glands demonstrate a normal CT appearance for arturo rial phase of imaging. Hypodense bilateral renal lesions are seen demonstrating attenuation coefficients most compatible with cysts. Largest exophytic cyst inferior pole left kidney measures 4. 4 cm. Prostate gland is heterogeneous and enlarged measuring 6.4 cm in transverse dimensions. The anterior superior aspect of the prostate gland is also nodular in appearance resulting in mass effect on the posterior inferior aspect of the urinary bladder. Prostate neoplasm based on CT evaluation cannot be excluded. Urinary bladder is slightly decompressed. Small amount retained fecal material seen throughout the colon. Colonic diverticulosis is present. Lo ops of small bowel are normal in caliber. No free fluid, fluid collection, lymphadenopathy is seen in the abdomen or pelvis. Degenerative changes are seen in the spine greater in the lower lumbar spine. Atherosclerotic calcifications and plaque is seen throughout the abdominal aorta and involving the il iac arteries. There is an infrarenal abdominal aortic aneurysm with mural thrombus measuring 4 cm. There is tortuosity and ectasia of the distal infrarenal abdominal aorta just above the level of the aortic bifurcation. The abdominal aorta at the level of the renal arteries measures 2.5 cm. Single patent bilateral renal arteries are seen. Mild narrowing is seen involving the origin of the c eliac artery. Superior mesenteric artery is patent. Origin of the inferior mesenteric artery is obscured due to dense vascular calcifications but otherwise appears patent. Atherosclerotic calcifica tions and plaque are seen involving the iliac arteries bilaterally. The origin and proximal right internal iliac artery is occluded with severe focal narrowing at the origin of the left internal tanna c artery. There is mild narrowing involving the midportion of the right external iliac artery. Left external iliac artery is patent. Bilateral lower extremity runoff to the feet: Right lower extremity: The right common femoral artery is patent. The right lower extremity superficial femoral artery occlu zackary proximally. There is suggestion of severe narrowing at the origin of the right profunda femoral artery. Majority the right enlargement popliteal artery is also occluded with reconstitution of the m ost distal right lower extremity popliteal artery which is very small in caliber. Dense calcifications are seen at the origin of the tibial peroneal trunk, and there is severe narrowing/cri tical stenosis involving the origin and proximal anterior tibial artery with ventral occlusion of the right anterior tibial artery at the proximal calf. Severe narrowing is seen involving the right p osterior tibial artery proximally. Posterior tibial and peroneal arteries are seen to the level of the distal calf but are not seen distal to this location which could be related to slow flow due to m ore proximal occlusion. However these arterial vessels are unable to be further evaluated distal to the level of the calf. Left lower extremity: Atherosclerotic irregularity and mild narrowing involving the left common femoral artery. The left archibald perficial femoral artery occludes proximally. Profunda femoral artery is patent with reconstitution of the [id number] popliteal artery which demonstrates significant atherosclerotic irregularity an d moderate and severe degrees of narrowing. Dense vascular calcifications are seen in the popliteal artery above the level of the knee. Alternating areas of enhancement and occlusion of the left lower extremity anterior tibial artery are present. Two-vessel runoff to the left lower extremity is via the peroneal and posterior tibial arteries. There is diffuse subcutaneous edema involving the left lower extremity. No fluid collection is seen. Intramedullary ronald and interlocking screws transfix the distal left tibial fracture. Fractures of the proximal and distal fibula are seen which could represent healing fractures although fracture rocky encies do persist. IMPRESSION: 1. Infrarenal abdominal aortic aneurysm measuring 4 cm with mural thrombus present. There is also ect merry of the more distal infrarenal abdominal aorta. 2. Occlusion of right internal iliac artery with severe narrowing at the origin of the left internal iliac artery. 3. Occlusion of the bilateral superficial femoral arteries. 4. Majority of the right popliteal artery is occluded with reconstitution of most distal very small c aliber right popliteal artery. Right anterior tibial artery occludes proximally. Very small caliber peroneal and posterior tibial arteries are seen with contrast only seen to the level of the distal ca lf. This may be related to slow flow secondary to more proximal occlusions and atherosclerotic vascular disease, but these vessels are unable to be further evaluated. 5. Occlusion of the left anterior tibial artery with two-vessel runoff to the left lower extremity vi a the peroneal and posterior tibial arteries. There is significant atherosclerotic vascular disease involving the popliteal artery above the level of the knee. 6. Internal fixation of distal left tibial fracture with fracture involving the proximal and distal l eft fibula. 7. Diffuse subcutaneous edema about the left lower extremity. 8. Enlargement of the prostate gland with nodularity of the contour involving the anterior superior a spect of the prostate gland. Neoplastic process involving the prostate gland cannot be excluded based on CT evaluation.
[2020-03-23] MEDS ORDERED: Prevnar 13-Val Conj/PF 0.5 ML SYRINGE IM ONE (21:00)
[2020-03-23] MEDS: Gabapentin 300 MG CAP PO SCH (22:13)
[2020-03-24] MEDS: Piperacillin/Tazobactam 3.375 GM in Sodium Chloride 0.9% 100 ML IVPB SCH ×3 (00:30→12:58)
[2020-03-24] MEDS: HYDROcodone/Acetaminophen 5/325 mg Tablet PO PRN ×5 (00:30→22:59)
--- NOTE | 2020-03-24 00:41 | CON ---
DATE OF CONSULTATION: 03/23/2020 REQUESTING PHYSICIAN: Dr. Fuller. CHIEF COMPLAINT: Cellulitis and nonhealing wound on the left lower extremity. HISTORY OF PRESENT ILLNESS: The patient is a 69-year-old man with an aversion to doctors and taking medications. He has a known ischemic cardiomyopathy and underwent emergency coronary artery bypass grafting in 2002. He says that after going home, he took his medications for about 2 weeks and then just simply stop them and he essentially did never go back to a doctor until about last September when he broke his left ankle. He underwent an ORIF of his distal tibia. At that time, he says that about 2 or 3 months ago, he could feel something near the medial malleolus and it proved to be a migrating screw that was surgically removed about 2 months ago. That small incision has never really healed at baseline. He has what he refers to as a neuropathy that frequently causes him pain when he elevates his leg and for several years, he has been letting his feet hang dependent to relieve this discomfort, but about 6 days ago there was a dramatic worsening of this involving his left lower extremity. A day or two ago, he noticed significant swelling in his left lower extremity. He had been put on antibiotics for cellulitis about 10 days or two weeks earlier and was due for a followup appointment when he noted that he was bleeding from that distal ankle wound. He initially decided to drive himself to his appointment and then opted to drive himself into [place] to the emergency room, but stopped at home in [place] and called an ambulance because of the persistent oozing of blood. PAST MEDICAL HISTORY: Significant for his coronary artery disease with an ischemic cardiomyopathy. I reports that his LVEF been as low as 15% to 20%. He had an echocardiogram here in October 2019 that shows his LVEF around 30% to 35%. In October of this year, he was admitted with a stroke manifested as left-sided numbness and weakness. An MRI demonstrated an acute infarct in the right thalamus at the junction with the posterior limb of the right internal capsule. HOME MEDICATIONS: At that time at discharge were: 1. Baby aspirin a day. 2. Plavix 75 mg a day. 3. Coreg 3.125 mg a day. 4. Lipitor 40 mg a day. 5. Flexeril 10 mg at bedtime. 6. Pepcid 20 mg a day. 7. Lisinopril 5 mg twice a day. 8. He is also on Nicoderm patch. SOCIAL HISTORY: He has about a [id number] history of smoking, he recently quit. FAMILY HISTORY: Significant for his mother, who had a stroke. REVIEW OF SYSTEMS: Notable for calf thigh and right buttock pain on ambulation consistent with claudication for at least several months. PHYSICAL EXAMINATION: GENERAL: He is in no distress. VITAL SIGNS: Temperature is 97.6 and his T-max this hospitalization is 98.3, heart rate is 52, blood pressure 128/75, and room air O2 saturations are 96%. NECK: He has no JVD. No carotid bruits. LUNGS: He has bibasilar faint rales. HEART: He has regular rate and rhythm without obvious murmur or gallop. ABDOMEN: Soft and nontender. EXTREMITIES: He has palpable, but perhaps slightly diminished femoral pulses. Both are associated with bruits. I am not able to palpate popliteal or pedal pulses (his left foot was wrapped and I did not take that dressing off in an attempt to examine the lower leg or pedal for pulses in that foot). He has edema in both lower extremities, trace to 1+ pitting edema at the distal left thigh. It looks more chronic up to the knee on the right side. There is a combination of venous stasis, pigmentation changes, venous congestion, and dependent rubor effecting both lower legs. Capillary refill in the toes is about 2 or 2.5 seconds. There are varicosities visible on the dorsum of the right foot. The wound care picture of the left foot shows some shallow ulceration on the left ankle and pretibial area, and eschar over an open wound at the medial malleolus with some edema and redness. LABORATORY DATA: His white count was 8.3, hemoglobin 14.4, hematocrit 44.6, platelets 262,000. Chemistries were normal. Glucose 93, BUN 12, creatinine 1.02, calcium is 9.9, albumin 4.5. LFTs were normal. C-reactive protein was 0.68 with upper limit of normal being 0.5. His lactate was 0.9. X-ray of his left lower leg shows hardware in place, two screws proximally in the tibia and only one distally with no obvious osteomyelitis or eroding hardware. There is a soft tissue defect visible at the medial malleolus that is roughly in line with distal screw hole in the tibial ronald. I see no chest x-ray in our system. His CTA shows a combination of aneurysmal occlusive disease. He has about a 4 cm infrarenal abdominal aortic aneurysm that has two components with a smaller component at the aortic bifurcation. The right common iliac measures on the order of about 2 to 2.5 cm. The left iliac system is generous through out and at its bifurcation appears to get a little bit bigger, but is only about 1.5 cm. He has extensive calcific disease. His external iliac appears to get stenotic in subtotally occluded common femoral level. The SFA is occluded and it appears that the popliteal reconstitutes by collateral at about the knee joint. It is hard to tell about his outflow, but it looks like he probably has posterior tibial runoff to the foot. It is harder to tell the anterior tibial or peroneal. He has surgical clips visible medially consistent with his stated history and the scars compatible with left greater saphenous vein harvest for his coronary artery bypass procedure. IMPRESSION AND RECOMMENDATIONS: I am not sure quite how to reconcile the relatively good femoral pulse with CT angiogram findings. Based on the CT angiogram, I was hopeful that it might be feasible to do a limited inflow procedures such as an iliofemoral endarterectomy, particularly given the patient's extreme reluctance to undergo any sort of therapy even medical therapy. I have explained to him that this is for limb salvage and that he has a high likelihood of losing his leg eventually if circulation to it cannot be improved. I have discussed with him conventional arteriography to map out the anatomy and the possibility of a femoral endarterectomy for inflow. Job ID: [id number]
[2020-03-24 04:39] LABS: Vancomycin, Trough 14.6 ug/mL
[2020-03-24] MEDS: Vancomycin HCl 1.25 GM in Sodium Chloride 0.9% 250 ML 250 ML IVPB SCH (05:29)
[2020-03-24] MEDS: Famotidine 20 MG TAB PO SCH ×2 (08:39→20:26)
[2020-03-24] MEDS: Enoxaparin Sodium 40 MG/0.4 ML SYRINGE SC SCH (08:39)
[2020-03-24] MEDS: Gabapentin 300 MG CAP PO SCH (08:40)
--- NOTE | 2020-03-24 14:56 | PDOC.HOSPP ---
- Subjective Encounter Date: 03/24/20 Subjective: Discussed the current informations we know about his condition. - Objective Vital Signs & Weight: Vital Signs (12 hours) Temp Pulse Resp BP Pulse Ox 03/24/20 11:00 98.0 F 61 16 135/76 97 03/24/20 08:00 97 03/24/20 07:00 97.7 F 65 18 123/66 97 Weight Admit Weight 169 lb Weight 169 lb 12.095 oz Result Diagrams: 03/23/20 05:34 03/23/20 05:34 Hospitalist ROS - Medication Medications: Active Medications Generic Name Dose Route Start Last Admin Trade Name Freq PRN Reason Stop Dose Admin Hydrocodone Bitart/Acetaminophen 1 tab 03/22/20 21:14 03/24/20 12:58 [place] 5/325 PO 1 tab Q4H PRN Administration Moderate Pain (4-6) Enoxaparin Sodium 40 mg 03/23/20 09:00 03/24/20 08:39 Lovenox SC 40 mg 0900 LAKSHMI Administration Famotidine 20 mg 03/22/20 21:00 03/24/20 08:39 Pepcid PO 20 mg BID LAKSHMI Administration Gabapentin 300 mg 03/24/20 09:00 03/24/20 08:40 Neurontin PO 300 mg DAILY LAKSHMI Administration Piperacillin Sod/Tazobactam 100 mls @ 200 mls/hr 03/22/20 23:59 03/24/20 12: 58 Sod 3.375 gm/ Sodium Chloride IVPB 100 mls Q6HR LAKSHMI Administration Vancomycin HCl 1.25 gm/ Sodium 250 mls @ 166.667 mls/hr 03/23/20 05:00 05:29 Chloride IVPB 250 mls 0500,1700 LAKSHMI Administration Tramadol HCl 50 mg 03/23/20 02:26 03/23/20 20:53 Ultram PO 50 mg Q4H PRN Administration Pain - Exam General Appearance: awake alert Neck: supple, no JVD Respiratory: normal chest expansion, no tachypnea Extremities: no cyanosis, no clubbing Neurological: cranial nerve grossly intact, no focal deficits Hosp A/P - Plan Hosp A/P (1) Cellulitis of right lower extremity Code(s): L03.115 - CELLULITIS OF RIGHT LOWER LIMB Status: Acute (2) Peripheral vascular disease Code(s): I73.9 - PERIPHERAL VASCULAR DISEASE, UNSPECIFIED Status: Acute (3) CAD (coronary artery disease) Code(s): I25.10 - ATHSCL HEART DISEASE OF [place] CORONARY ARTERY W/O ANG PCTRS Status: Chronic (4) Dyslipidemia Code(s): E78.5 - HYPERLIPIDEMIA, UNSPECIFIED Status: Chronic (5) Hypertension Code(s): I10 - ESSENTIAL (PRIMARY) HYPERTENSION Status: Chronic (6) Chronic systolic heart failure Code(s): I50.22 - CHRONIC SYSTOLIC (CONGESTIVE) HEART FAILURE Status: Chronic - Plan * Severe Peripheral Vascular disease with cellulitis of the right lower ectremity- there is no need for surgical debridement * Culture results positive for E. coli and Enterobacter both of which are sensitive to ceftriaxone which will be used instead of the current broad- spectrum coverage. * CTA with runoff showing infrarenal abdominal aortic aneurysm measuring 4 cm in diameter with clot present inside the aneurysm. It also showed moderate to severe peripheral arterial disease from the level of the iliac arteries downward. * Vascular surgery planning conventional angiogram. * He may need an Echo if surgery is needed- to re-assess his EF ( he does not want an Echo, if surgery is not needed) * CAD- stable * HTN- blood pressure is controlled
[2020-03-24] MEDS: Atorvastatin Calcium 40 MG TAB PO SCH (20:27)
[2020-03-25] MEDS: traMADol HCl 50 MG TAB PO PRN ×2 (01:02→04:58)
[2020-03-25] MEDS: HYDROcodone/Acetaminophen 5/325 mg Tablet PO PRN ×5 (03:11→23:59)
[2020-03-25] MEDS: Gabapentin 300 MG CAP PO SCH (08:33)
[2020-03-25] MEDS: cefTRIAXone\\ROCEPHIN 1 GM in Sodium Chloride 0.9% 100 ML IVPB SCH (08:33)
[2020-03-25] MEDS: Enoxaparin Sodium 40 MG/0.4 ML SYRINGE SC SCH (08:33)
[2020-03-25] MEDS: Famotidine 20 MG TAB PO SCH ×2 (08:33→20:20)
[2020-03-25] MEDS ORDERED: Amlodipine 10 MG TAB PO SCH (11:45)
--- NOTE | 2020-03-25 14:52 | PDOC.HOSPP ---
- Subjective Encounter Date: 03/25/20 Subjective: No new events overnight. - Objective Vital Signs & Weight: Vital Signs (12 hours) Temp Pulse Resp BP BP Pulse Ox 03/25/20 12:11 54 L 144/81 H 03/25/20 10:54 98.0 F 54 L 17 144/81 H 98 03/25/20 08:00 98 03/25/20 07:45 97.9 F 62 18 148/75 H 98 Weight Admit Weight 169 lb Weight 169 lb 12.095 oz Result Diagrams: 03/23/20 05:34 03/23/20 05:34 Hospitalist ROS - Medication Medications: Active Medications Generic Name Dose Route Start Last Admin Trade Name Freq PRN Reason Stop Dose Admin Hydrocodone Bitart/Acetaminophen 1 tab 03/22/20 21:14 03/25/20 08:32 [place] 5/325 PO 1 tab Q4H PRN Administration Moderate Pain (4-6) Atorvastatin Calcium 40 mg 03/24/20 21:00 03/24/20 20:27 Lipitor PO 40 mg HS LAKSHMI Administration Enoxaparin Sodium 40 mg 03/23/20 09:00 03/25/20 08:33 Lovenox SC 40 mg 0900 LAKSHMI Administration Famotidine 20 mg 03/22/20 21:00 03/25/20 08:33 Pepcid PO 20 mg BID LAKSHMI Administration Gabapentin 300 mg 03/24/20 09:00 03/25/20 08:33 Neurontin PO 300 mg DAILY LAKSHMI Administration Ceftriaxone Sodium 1 gm/ 100 mls @ 200 mls/hr 03/25/20 09:00 03/25/20 08:33 Sodium Chloride IVPB 100 mls Q24HR LAKSHMI Administration Tramadol HCl 50 mg 03/23/20 02:26 03/25/20 04:58 Ultram PO 50 mg Q4H PRN Administration Pain - Exam General Appearance: awake alert ENT: normocephalic atraumatic Neck: supple Respiratory: normal chest expansion, no tachypnea Extremities: no cyanosis, no clubbing Neurological: cranial nerve grossly intact, no focal deficits Hosp A/P - Plan Hosp A/P (1) Cellulitis of right lower extremity Code(s): L03.115 - CELLULITIS OF RIGHT LOWER LIMB Status: Acute (2) Peripheral vascular disease Code(s): I73.9 - PERIPHERAL VASCULAR DISEASE, UNSPECIFIED Status: Acute (3) CAD (coronary artery disease) Code(s): I25.10 - ATHSCL HEART DISEASE OF [place] CORONARY ARTERY W/O ANG PCTRS Status: Chronic (4) Dyslipidemia Code(s): E78.5 - HYPERLIPIDEMIA, UNSPECIFIED Status: Chronic (5) Hypertension Code(s): I10 - ESSENTIAL (PRIMARY) HYPERTENSION Status: Chronic (6) Chronic systolic heart failure Code(s): I50.22 - CHRONIC SYSTOLIC (CONGESTIVE) HEART FAILURE Status: Chronic - Plan * Severe Peripheral Vascular disease with cellulitis of the right lower extremity- there is no need for surgical debridement * Culture results positive for E. coli and Enterobacter both of which are sensitive to ceftriaxone which is being used instead of the previous broad- spectrum coverage. * CTA with runoff showing infrarenal abdominal aortic aneurysm measuring 4 cm in diameter with clot present inside the aneurysm. It also showed moderate to severe peripheral arterial disease from the level of the iliac arteries downward. * Vascular surgery planning conventional angiogram. * He may need an Echo if surgery is needed- to re-assess his EF ( he does not want an Echo, if surgery is not needed) * CAD- stable * HTN- blood pressure is controlled
[2020-03-25] MEDS: Atorvastatin Calcium 40 MG TAB PO SCH (20:20)
[2020-03-26] MEDS: HYDROcodone/Acetaminophen 5/325 mg Tablet PO PRN ×2 (07:25→21:39)
[2020-03-26] MEDS: cefTRIAXone\\ROCEPHIN 1 GM in Sodium Chloride 0.9% 100 ML IVPB SCH (08:02)
[2020-03-26] MEDS ORDERED: Iopamidol 370 76% 50 ML VIAL FS ONE (09:13)
[2020-03-26] MEDS ORDERED: Midazolam HCl 2 mg/2 ml Vial ONE (09:19)
[2020-03-26] MEDS ORDERED: Fentanyl 100 MCG/2 ML VIAL ONE ×2 (09:19→09:53)
[2020-03-26] MEDS: Enoxaparin Sodium 40 MG/0.4 ML SYRINGE SC SCH (09:48)
[2020-03-26] MEDS: Amlodipine 5 MG TAB PO SCH ×2 (09:48→16:13)
[2020-03-26] MEDS: Sodium Chloride 0.9% 1,000 ML IV SCH (15:15)
--- NOTE | 2020-03-26 15:17 | PDOC.HOSPP ---
- Subjective Encounter Date: 03/26/20 Subjective: No new complaints. - Objective Vital Signs & Weight: Vital Signs (12 hours) Temp Pulse Resp BP BP BP Pulse Ox 03/26/20 14:42 64 16 157/79 H 99 03/26/20 09:48 60 145/67 H 03/26/20 07:31 97.7 F 60 18 145/67 H 97 03/26/20 03:37 97.9 F 66 18 137/76 100 Weight Admit Weight 169 lb Weight 169 lb 12.095 oz Result Diagrams: 03/23/20 05:34 03/23/20 05:34 Hospitalist ROS - Medication Medications: Active Medications Generic Name Dose Route Start Last Admin Trade Name Freq PRN Reason Stop Dose Admin Hydrocodone Bitart/Acetaminophen 1 tab 03/22/20 21:14 03/26/20 07:25 [place] 5/325 PO 1 tab Q4H PRN Administration Moderate Pain (4-6) Amlodipine Besylate 5 mg 03/26/20 09:00 03/26/20 09:48 Norvasc PO Not Given DAILY LAKSHMI Atorvastatin Calcium 40 mg 03/24/20 21:00 03/25/20 20:20 Lipitor PO 40 mg HS LAKSHMI Administration Enoxaparin Sodium 40 mg 03/23/20 09:00 03/26/20 09:48 Lovenox SC Not Given 0900 LAKSHMI Famotidine 20 mg 03/22/20 21:00 03/25/20 20:20 Pepcid PO 20 mg BID LAKSHMI Administration Gabapentin 300 mg 03/24/20 09:00 03/25/20 08:33 Neurontin PO 300 mg DAILY LAKSHMI Administration Ceftriaxone Sodium 1 gm/ 100 mls @ 200 mls/hr 03/25/20 09:00 03/26/20 08:02 Sodium Chloride IVPB 100 mls Q24HR LAKSHMI Administration Tramadol HCl 50 mg 03/23/20 02:26 03/25/20 04:58 Ultram PO 50 mg Q4H PRN Administration Pain - Exam General Appearance: awake alert ENT: normocephalic atraumatic Neck: supple Respiratory: normal chest expansion, normal percussion Gastrointestinal: soft, non-tender Neurological: cranial nerve grossly intact, no new deficit Hosp A/P - Plan Hosp A/P (1) Cellulitis of right lower extremity Code(s): L03.115 - CELLULITIS OF RIGHT LOWER LIMB Status: Acute (2) Peripheral vascular disease Code(s): I73.9 - PERIPHERAL VASCULAR DISEASE, UNSPECIFIED Status: Acute (3) CAD (coronary artery disease) Code(s): I25.10 - ATHSCL HEART DISEASE OF [place] CORONARY ARTERY W/O ANG PCTRS Status: Chronic (4) Dyslipidemia Code(s): E78.5 - HYPERLIPIDEMIA, UNSPECIFIED Status: Chronic (5) Hypertension Code(s): I10 - ESSENTIAL (PRIMARY) HYPERTENSION Status: Chronic (6) Chronic systolic heart failure Code(s): I50.22 - CHRONIC SYSTOLIC (CONGESTIVE) HEART FAILURE Status: Chronic - Plan * Severe Peripheral Vascular disease with cellulitis of the right lower extremity- there is no need for surgical debridement * Culture results positive for E. coli and Enterobacter both of which are sensitive to ceftriaxone which is being used instead of the previous broad- spectrum coverage. * CTA with runoff showing infrarenal abdominal aortic aneurysm measuring 4 cm in diameter with clot present inside the aneurysm. It also showed moderate to severe peripheral arterial disease from the level of the iliac arteries downward. * Status post angiogram today. Report is unavailable yet. Vascular surgery planning femoral-popliteal bypass surgery. * CAD- stable * HTN- blood pressure is controlled
[2020-03-26] MEDS: Famotidine 20 MG TAB PO SCH ×2 (16:14→21:25)
[2020-03-26] MEDS: Gabapentin 300 MG CAP PO SCH (16:14)
[2020-03-26] MEDS: Tamsulosin HCl 0.4 MG CAP PO SCH (16:14)
--- NOTE | 2020-03-26 19:05 | OP ---
DATE OF PROCEDURE: 03/26/2020 PROCEDURES PERFORMED: Aortography with bilateral peripheral runoff with ultrasonographic and fluoroscopic guidance, elective left lower extremity arteriography with distal common femoral/profunda femoris positioning of catheter, and sheath arteriography with right lower extremity runoff. PREOPERATIVE DIAGNOSIS: Combined aneurysmal and occlusive peripheral vascular disease with nonhealing wound, left lower extremity. POSTOPERATIVE DIAGNOSIS: Combined aneurysmal and occlusive peripheral vascular disease with nonhealing wound, left lower extremity. ANESTHESIA: 1% lidocaine, local anesthesia with intravenous sedation using Versed and fentanyl. FINDING: Fluoroscopy time, 22 minutes. Contrast utilized, 75 mL of Isovue. There were aneurysmal changes involving the aorta above the left superficial femoral artery was occluded at its origin. It was a very large profunda femoris. Giving off collaterals that reconstitute the popliteal artery just above the knee joint, and there was a single vessel runoff to the foot. There was a large posterior tibial on the right side. There was diffuse luminal irregularity in the external iliac and common femoral artery with occlusion of the SFA at its origin. The popliteal artery reconstituted just below the knee joint with runoff through the posterior tibial and peroneal arteries. DESCRIPTION OF PROCEDURE: After informed consent was obtained, the patient was taken to the cardiac dye lab technician in position on the cath table as the patient for some time had been requiring deepened positioning of his left foot for adequate pain control. He was given an initial dose of Versed and fentanyl once shave and prep of the groins had been undertaken, and his left leg was positioned on the table. His groins were then prepped and draped in sterile fashion. His right femoral pulse was palpated, and ultrasonography was used to identify the common femoral bifurcation. 1% lidocaine was used to infiltrate the skin and subcutaneous tissues, and then using the Seldinger technique initially with a micropuncture needle, wire, and sheath, the right femoral artery was cannulated. Appropriate wire positioning was confirmed by fluoroscopy. The micropuncture sheath was exchanged over a wire for a 5-Chinese sheath, and then a Bentson wire was guided into the aorta. Some manipulation of the wire was necessary to negotiate an aneurysmal and ectatic aorta. Contra catheter was then placed over the wire and manipulated to position the catheter at about the level of L1. Flush aortogram was performed, and then the catheter was drawn down near the bifurcation over a wire, and then a second aortogram with runoff of the iliofemoral was performed. Utilizing an exchange of wires and catheters utilizing the Hendrickson wire, the glidewire, the Contra catheter, the soft angled catheter, wire was guided down the left iliofemoral system, and catheter was advanced over the wire. Additional injections were obtained including right anterior oblique views, while the right iliac system was irregular and ectatic. There was no obvious obstructing disease in the iliac system per se. Initially, the appearance fluoroscopically was at the wire that gone well down the SFA. However, after the injection could be appreciated, this was in fact a very large profunda. The wire and catheter were withdrawn to the very distal common femoral near the origin of the profunda, and injections were made demonstrating the reconstitution of the popliteal artery just above the knee joint and demonstrating posterior tibial runoff. Over the wire, the catheter was withdrawn proximally to complete the oblique views of the left-sided system, and then the catheter was completely removed, and a sheath arteriogram was performed to better visualize the right-sided system. It was followed down two injections demonstrating in order to the occlusion of the SFA at its origin with reconstitution of the popliteal just below the knee joint and what appears represent posterior tibial and peroneal runoff of the foot on either side was the anterior tibial identified. The sheath was withdrawn and pressure held, and the procedure was terminated. Job ID: [id number]
[2020-03-26] MEDS: Atorvastatin Calcium 40 MG TAB PO SCH (21:25)
[2020-03-26] MEDS: traMADol HCl 50 MG TAB PO PRN (23:38)
[2020-03-27] MEDS: HYDROcodone/Acetaminophen 5/325 mg Tablet PO PRN ×2 (05:30→21:17)
[2020-03-27] MEDS ORDERED: Vancomycin 1.5 GRAM/300 ML BAG 1.5 GM/300 ML BAG ONE (06:22)
[2020-03-27] MEDS ORDERED: Vancomycin 1 GM/200 ML BAG ONE (06:23)
[2020-03-27] MEDS ORDERED: Midazolam HCl 2 mg/2 ml Vial ONE (06:32)
[2020-03-27] MEDS ORDERED: Heparin 5,000 UNITS/ML VIAL ONE (06:32)
[2020-03-27] MEDS ORDERED: Fentanyl 100 MCG/2 ML VIAL ONE ×3 (06:32→13:24)
[2020-03-27] MEDS ORDERED: Protamine Sulfate 50 MG/5 ML VIAL ONE (06:32)
[2020-03-27] MEDS ORDERED: CABG-Vancomycin 1 GM in Premix Bag 1 BAG IVPB SCH (07:00)
[2020-03-27] MEDS ORDERED: Sodium Chloride 0.9% 100 ML ONE (07:17)
[2020-03-27] MEDS ORDERED: cefTRIAXone\\ROCEPHIN 1 GM VIAL ONE (07:17)
[2020-03-27] MEDS ORDERED: Rocuronium Bromide 50 MG/5 ML VIAL ONE (09:04)
[2020-03-27] MEDS ORDERED: Ketorolac Tromethamine 30 MG/ML VIAL ONE (12:47)
[2020-03-27] MEDS ORDERED: PHENYLEPHRINE-NS 100 MCG/ML 10 ML SYRINGE ONE (12:47)
[2020-03-27] MEDS ORDERED: Ondansetron PF 4 MG/2 ML Vial ONE (12:47)
[2020-03-27] MEDS ORDERED: Dexamethasone 20 MG/5 ML VIAL ONE (12:47)
[2020-03-27] MEDS ORDERED: Rocuronium Bromide 10 MG/ML (10ML VIAL) ONE (12:47)
[2020-03-27] MEDS ORDERED: PROPOFOL 200 MG/20 ML VIAL ONE (12:47)
[2020-03-27] MEDS ORDERED: EPHEDRINE 25 MG/5 ML SYRINGE ONE (12:47)
[2020-03-27] MEDS ORDERED: Lidocaine 1% PF 5 ML VIAL ONE (12:47)
[2020-03-27] MEDS ORDERED: Glycopyrrolate 0.2 MG/ML 5 ML SYRINGE ONE (12:47)
[2020-03-27] MEDS ORDERED: Promethazine HCl 25 MG/ML VIAL PR PRN (12:52)
[2020-03-27] MEDS ORDERED: Fentanyl 100 MCG/2 ML VIAL SLOW IVP PRN (12:52)
[2020-03-27] MEDS ORDERED: Ondansetron PF 4 MG/2 ML Vial IVP PRN (12:52)
[2020-03-27] MEDS ORDERED: HYDROcodone/Acetaminophen 5/325 mg Tablet PO PRN (12:52)
[2020-03-27] MEDS ORDERED: Acetaminophen 325 MG TAB PO PRN (12:52)
--- NOTE | 2020-03-27 13:44 | RAD ---
PORTABLE CHEST 1 VIEW: Date: 03/27/2020 Time: 1312 hours HISTORY: Cardiomyopathy. COMPARISON: 07/09/2009. FINDINGS: Changes of median sternotomy again seen. The heart size is normal. The aorta is tortuous. The lungs a re well expanded without lobar consolidation, pneumothoraces, or pleural effusions. Old left-sided ri b fractures and left clavicular fracture are present. IMPRESSION: No acute process. POS: [facility]
[2020-03-27] MEDS: Sodium Chloride 0.9% 1,000 ML IV SCH (14:31)
[2020-03-27] MEDS: Amlodipine 5 MG TAB PO SCH (14:52)
[2020-03-27] MEDS: cefTRIAXone\\ROCEPHIN 1 GM in Sodium Chloride 0.9% 100 ML IVPB SCH (14:53)
[2020-03-27] MEDS: Enoxaparin Sodium 40 MG/0.4 ML SYRINGE SC SCH (14:53)
[2020-03-27] MEDS: Famotidine 20 MG TAB PO SCH ×2 (14:53→20:05)
[2020-03-27] MEDS: Tamsulosin HCl 0.4 MG CAP PO SCH (14:54)
[2020-03-27] MEDS: Gabapentin 300 MG CAP PO SCH (14:54)
[2020-03-27] MEDS: Fentanyl 100 MCG/2 ML VIAL SLOW IVP PRN ×3 (15:08→23:13)
[2020-03-27] MEDS: Atorvastatin Calcium 40 MG TAB PO SCH (20:05)
--- NOTE | 2020-03-27 21:53 | PDOC.HOSPP ---
- Subjective Encounter Date: 03/27/20 Subjective: Doing ok post-op. No pain. - Objective Vital Signs & Weight: Vital Signs (12 hours) Temp Pulse Pulse Ox 03/27/20 20:00 98.1 F 03/27/20 14:52 76 03/27/20 14:03 97 03/27/20 13:58 97.6 F Weight Admit Weight 169 lb Weight 169 lb 12.095 oz Most Recent Monitor Data Heart Rate from ECG 103 NIBP 137/73 NIBP BP-Mean 94 Respiration from ECG 21 SpO2 99 I&O: 03/26/20 03/27/20 03/28/20 06:59 06:59 06:59 Intake Total 1050 402 Output Total 300 360 Balance 750 42 Result Diagrams: 03/23/20 05:34 03/23/20 05:34 Additional Labs: Accuchecks 03/27/20 03/27/20 11:24 09:07 POC Glucose 146 H 116 H Hospitalist ROS - Medication Medications: Active Medications Generic Name Dose Route Start Last Admin Trade Name Freq PRN Reason Stop Dose Admin Hydrocodone Bitart/Acetaminophen 1 tab 03/27/20 12:52 03/27/20 17:23 [place] 5/325 PO 1 tab Q4H PRN Administration Mild Pain (1-3) Hydrocodone Bitart/Acetaminophen 2 tab 03/27/20 12:52 03/27/20 21:17 [place] 5/325 PO 2 tab Q4H PRN Administration Moderate Pain (4-6) Amlodipine Besylate 5 mg 03/26/20 09:00 03/27/20 14:52 Norvasc PO Not Given DAILY [facility] Atorvastatin Calcium 40 mg 03/24/20 21:00 03/27/20 20:05 Lipitor PO 40 mg HS LAKSHMI Administration Enoxaparin Sodium 40 mg 03/23/20 09:00 03/27/20 14:53 Lovenox SC Not Given 09 LAKSHMI Famotidine 20 mg 03/22/20 21:00 03/27/20 20:05 Pepcid PO 20 mg BID LAKSHMI Administration Fentanyl 50 mcg 03/27/20 12:52 03/27/20 19:22 Sublimaze SLOW IVP 50 mcg Q2H PRN Administration Severe Pain (7-10) Gabapentin 300 mg 03/24/20 09:00 03/27/20 14:54 Neurontin PO Not Given DAILY [facility] Ceftriaxone Sodium 1 gm/ 100 mls @ 200 mls/hr 03/25/20 09:00 03/27/20 14:53 Sodium Chloride IVPB Not Given Q24HR LAKSHMI Sodium Chloride 1,000 mls @ 50 mls/hr 03/26/20 10:45 03/27/20 14:31 Normal Saline 0.9% IV 1,000 mls .Q20H LAKSHMI Administration Sodium Chloride 10 ml 03/27/20 21:00 03/27/20 20:05 Flush - Normal Saline IVF 10 ml Q12HR LAKSHMI Administration Tamsulosin HCl 0.4 mg 03/26/20 09:00 03/27/20 14:54 Flomax PO Not Given DAILY LAKSHMI Tramadol HCl 50 mg 03/23/20 02:26 03/26/20 23:38 Ultram PO 50 mg Q4H PRN Administration Pain - Exam General Appearance: NAD, awake alert Heart: RRR, no murmur, no gallops, no rubs, normal peripheral pulses Respiratory: CTAB, no wheezes, no rales, no ronchi, normal chest expansion, no tachypnea, normal percussion Gastrointestinal: soft, non-tender, non-distended, normal bowel sounds, no palpable masses, no hepatomegaly, no splenomegaly, no bruit Extremities - other findings: Chr. erythema. Medial L ankle lesion. Warm, dry. Skin: normal turgor Neurological: no focal deficits Musculoskeletal: normal tone Psychiatric: normal affect Hosp A/P (1) Cellulitis of lower extremity Code(s): L03.119 - CELLULITIS OF UNSPECIFIED PART OF LIMB Status: Acute (2) Peripheral vascular disease Code(s): I73.9 - PERIPHERAL VASCULAR DISEASE, UNSPECIFIED Status: Acute (3) CAD (coronary artery disease) Code(s): I25.10 - ATHSCL HEART DISEASE OF [place] CORONARY ARTERY W/O ANG PCTRS Status: Chronic (4) Dyslipidemia Code(s): E78.5 - HYPERLIPIDEMIA, UNSPECIFIED Status: Chronic (5) Hypertension Code(s): I10 - ESSENTIAL (PRIMARY) HYPERTENSION Status: Chronic - Plan Doing well post-op. Extremities warm and dry. Continue IV abx. with Rocephin. ID consult.
--- NOTE | 2020-03-27 22:46 | OP ---
DATE OF PROCEDURE: 03/27/2020 PROCEDURES PERFORMED: Left common femoral endarterectomy, left popliteal artery endarterectomy, left common femoral artery to popliteal artery at the knee joint with 8 mm Deshler-Shyam Propaten graft and saphenous vein patch profundoplasty. PREOPERATIVE DIAGNOSIS: Peripheral vascular disease with nonhealing wound and rest pain, left lower extremity. POSTOPERATIVE DIAGNOSIS: Peripheral vascular disease with nonhealing wound and rest pain, left lower extremity. ANESTHESIA: General endotracheal anesthesia. INDICATIONS: The patient is a 69-year-old man with an ischemic cardiomyopathy. He has already had saphenous vein harvested from his left lower extremity for coronary artery bypass grafting. He recently required ORIF of an ankle fracture and a migrating screw distally had to be removed and that wound has failed to heal, and he has developed pain consistent with ischemic rest pain. Arteriography demonstrated occlusion of his superficial femoral artery with reconstitution of a diseased popliteal artery just above the knee joint. He is now taken to the operating room for revascularization for limb salvage. FINDINGS: Modest plaque at the distal common femoral level, heavy hard plaque at the popliteal level. Postoperatively, there was a bounding palpable popliteal pulse and an excellent Doppler signal in the posterior tibial at the ankle. DESCRIPTION OF PROCEDURE: After informed consent was obtained, the patient was taken to the operating room and placed in the supine position on the operating table. After the induction of general anesthesia, the patient's lower abdomen, groins, and lower extremities were prepped and draped in sterile fashion. Stockinette and Ioban were used to exclude the wounds on the left lower leg from the operative field. An oblique incision was made parallel to and just below the left groin crease. The incision was carried through the subcutaneous tissue. The stump of the previously harvested saphenous vein was identified and it was mobilized up to the saphenofemoral junction with about 4 or 5 cm of soft good quality vein being thus mobilized. On exposing the saphenous femoral junction, the tributary to that same medusa had coursing somewhat medially, but roughly parallel to it was identified. It was followed for several centimeters at first thinking that perhaps it represented a dual system, but it quickly became rather small and very thin walled. The remnant saphenous system was retracted medially to allow for exposure of the femoral artery more laterally. The distal external iliac and common femoral were skeletonized, and a profunda branch was identified as well as circumflex vessels. That wound was packed off, and attention was then turned to the popliteal. A longitudinal incision was made medially on the distal thigh, and the popliteal space was entered. The popliteal artery was identified proximally in the wound. Tissues were densely adhered to this extensively diseased vessel. Bridging veins of the popliteal venous system were ligated and divided to allow for dissection of the popliteal artery. The skin incision had to be extended, and the dissection was carried distally down to about the level of the knee joint. Ultimately, there was a relatively soft area of the vessel, but just distal to that, it was rock hard and it became clear that an endarterectomy would be necessary in order to sew an anastomosis to the popliteal artery, even if there was adequate lumen to support a graft and the patient was heparinized. Proximal and distal control were established on the popliteal artery per se, and small side branches were controlled with hemoclips. An 11 blade scalpel was used to create a longitudinal arteriotomy in the relative soft area. An arteriotomy that ultimately was about 4 or 5 cm in length was made. Plaque was extracted by an eversion technique from the vessel proximally to allow for being able to adequately clamp the vessel proximally. An elevator was used to mobilize the plaque, and Sarot clamps were used to extract plaque distally by an eversion technique. The vascular clamp was reapplied. An 8 mm Deshler-Shyam Propaten graft was generously beveled and anastomosed there end-to-side with running 5-0 Prolene suture. It back bled well and flushed easily. The graft was passed up to the groin incision through a subsartorial tunnel using a Emi-Wick tunneling device, and a vascular clamp was applied to the graft in the popliteal incision. The common femoral artery was opened with an 11 blade scalpel and extended proximally up onto the external iliac heavy plaquing and the arteriotomy distally was addressed with an endarterectomy, and Sidney scissors were used to extend the arteriotomy distally down onto a profunda branch several millimeters. The mobilized remnant of saphenous vein was bivalved and used as a patch profundoplasty, and then the Deshler-Shyam graft was trimmed to length with generous bevel and anastomosed to the common femoral and external iliac with running Prolene suture. The side branches were released by removing the hemoclips from them as were the hemoclips off the popliteal artery. The vascular clamps were released, and the suture lines inspected for hemostasis. A [id number] Prolene suture was used to achieve hemostasis at a bifurcation point on the proximal incision in a mattress and a [id number] suture at the toe oriented longitudinally was used to achieve hemostasis of the popliteal incision. Protamine was administered and when hemostasis was adequate, the wounds were copiously irrigated. They were closed in a deep and superficial layers of 2-0 Vicryl, and then the skin was closed with a running 4-0 Vicryl subcuticular stitch reinforced with interrupted nylon skin sutures. The wounds were dressed. The patient was awakened and extubated in the operating room and taken to the recovery area in stable condition. Estimated blood loss during the procedure was 400 mL. He received 1600 mL of crystalloid and urine output was 400 mL. Instrument, needle, and sponge counts were correct. Job ID: [id number]
[2020-03-28] MEDS: HYDROcodone/Acetaminophen 5/325 mg Tablet PO PRN ×6 (01:29→23:39)
[2020-03-28] MEDS: Sodium Chloride 0.9% 1,000 ML IV SCH (03:27)
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
[2020-03-28 03:46] LABS: #Lymphocytes 0.9 thou/uL (1.20-3.40); #Monocytes 0.9 thou/uL (0.11-0.59); #Neutrophils 6.7 thou/uL (1.40-6.50); %Eosinophils 0.2 % (0.0-10.0); %Lymphocytes 10.6 % (21.0-51.0); %Monocytes 10.6 % (0.0-10.0); %Neutrophils 78.5 % (42.0-75.0); Hemoglobin 10.4 g/dL (14.0-18.0); Mean Corpuscular HGB CONC 34.1 g/dL (32.0-36.0); Mean Corpuscular Hemoglobin 31.9 pg (27.0-31.0); Mean Corpuscular Volume 93.6 fL (78.0-98.0); Mean Platelet Volume 8.2 fL (7.4-10.4); Platelet Count 183 thou/uL (130-400); Red Blood Cell (RBC) Count 3.25 mill/uL (4.70-6.10); White Blood Cell (WBC) Count 8.5 thou/uL (4.8-10.8)
[2020-03-28 04:07] LABS: Anion Gap 9 mmol/L (10-20); BUN (Urea Nitrogen) 8 mg/dL (8.4-25.7); Calc. Creatinine Clearance 93 mL/min (70-130); Calcium 8.1 mg/dL (7.8-10.44); Carbon Dioxide 25 mmol/L (23-31); Chloride 109 mmol/L (98-107); Estimated GFR-MDRD Greater than 90; Glucose 111 mg/dL (80-115); Potassium 3.9 mmol/L (3.5-5.1); Sodium 139 mmol/L (136-145)
[2020-03-28] MEDS: Fentanyl 100 MCG/2 ML VIAL SLOW IVP PRN ×3 (05:38→21:40)
--- NOTE | 2020-03-28 08:51 | RAD ---
PORTABLE CHEST: HISTORY: Cardiomyopathy. COMPARISON: 03/27/2020. FINDINGS: Lungs appear clear of infiltrate. No evidence of vascular congestion. Heart size upper normal and s table. Postop sternotomy changes again noted. IMPRESSION: No acute process. No interval change noted. POS: AGW
[2020-03-28] MEDS: Gabapentin 300 MG CAP PO SCH (09:57)
[2020-03-28] MEDS: Enoxaparin Sodium 40 MG/0.4 ML SYRINGE SC SCH (09:57)
[2020-03-28] MEDS: Amlodipine 5 MG TAB PO SCH (09:57)
[2020-03-28] MEDS: Famotidine 20 MG TAB PO SCH ×2 (09:57→21:42)
[2020-03-28] MEDS: Tamsulosin HCl 0.4 MG CAP PO SCH (09:57)
[2020-03-28] MEDS: Aspirin Chewable 81 MG TAB PO SCH (09:57)
[2020-03-28] MEDS: cefTRIAXone\\ROCEPHIN 1 GM in Sodium Chloride 0.9% 100 ML IVPB SCH (09:57)
--- NOTE | 2020-03-28 15:35 | PRG ---
DATE OF SERVICE: 03/28/2020 SUBJECTIVE: Luther Ochoa did well overnight. OBJECTIVE: VITAL SIGNS: He is afebrile, heart rate is 86, respiratory rate is 18, oximetry is 97 on room air, blood pressure 124/52. LUNGS: Clear. HEART: Regular rhythm. ABDOMEN: Soft. EXTREMITIES: Feet were warm. LABORATORY DATA: White count 8.5, hemoglobin 10.4, platelets 183. Electrolytes are normal. IMPRESSION: Status post left common femoral endarterectomy, left popliteal artery endarterectomy, left common femoral artery to popliteal artery at the knee graft, saphenous vein patch profundoplasty. He appears to be doing well. I consulted Infectious Disease for possible bone infection related to hardware in his ankle with a nonhealing ulcer. We will appreciate their input. Job ID: [id number]
[2020-03-28 20:33] LABS: Anion Gap 13 mmol/L (10-20); BUN (Urea Nitrogen) 12 mg/dL (8.4-25.7); Calc. Creatinine Clearance 77 mL/min (70-130); Calcium 8.4 mg/dL (7.8-10.44); Carbon Dioxide 23 mmol/L (23-31); Chloride 107 mmol/L (98-107); Estimated GFR-MDRD 76; Glucose 161 mg/dL (80-115); Magnesium 1.8 mg/dL (1.6-2.6); Potassium 3.6 mmol/L (3.5-5.1); Sodium 139 mmol/L (136-145)
--- NOTE | 2020-03-28 20:59 | PDOC.EVN ---
Event Note - Event Note Event Note: Was called that the patient's heart rate was in the 140s during vital sign check , pt asymptomatic. T 98.6, BP 113/62, O2 96% RA, RR 16, P 145. EKG ordered and showed Afib with RVR with no known history of Afib in the past per the nurse. Discussed with Dr. Lopez. Patient to transfer to Tele to be monitored, cardiology consult regarding new onset Afib- sent EKG to Dr. Felix who is science consultant and discussed patient with him including history. Patient with documented EF of 20-25% in the past and has refused lifevest. Amiodarone to start as soon as he is monitored. Troponin, lactic acid and UA ordered.
[2020-03-28] MEDS ORDERED: Amiodarone 150 MG in Dextrose 5% in Water 100 ML IVPB SCH (21:00)
[2020-03-28] MEDS ORDERED: Amiodarone 450 MG in Dextrose 5% in Water 250 ML IVPB SCH (21:00)
[2020-03-28] MEDS ORDERED: Furosemide 40 MG/4 ML VIAL ONE (21:17)
[2020-03-28 21:26] LABS: Lactic Acid 3.8 mmol/L (0.5-2.2)
[2020-03-28] MEDS: Atorvastatin Calcium 40 MG TAB PO SCH (21:42)
[2020-03-28 22:09] LABS: CKMB 26.4 ng/mL (0-6.6)
--- NOTE | 2020-03-28 22:16 | PDOC.HOSPP ---
- Subjective Encounter Date: 03/28/20 Subjective: Doing very well today. Minimal soreness. Says his foot and leg feels better than it has in a long while. He can keep the left leg on the bed and keep it there without hurting. - Objective Vital Signs & Weight: Vital Signs (12 hours) Temp Pulse Resp BP BP Pulse Ox 03/28/20 20:00 96 03/28/20 19:45 98.6 F 145 H 16 113/62 96 03/28/20 18:00 82 18 129/58 L 03/28/20 11:30 98.3 F 86 18 124/52 L 97 Weight Admit Weight 169 lb Weight 169 lb 12.095 oz Most Recent Monitor Data Heart Rate from ECG 85 NIBP 117/70 NIBP BP-Mean 85 Respiration from ECG 19 SpO2 99 I&O: 03/27/20 03/28/20 03/29/20 06:59 06:59 06:59 Intake Total 1050 963 Output Total 300 1118 0 Balance 750 -155 0 Result Diagrams: 03/28/20 03:13 03/28/20 20:04 Hospitalist ROS - Medication Medications: Active Medications Generic Name Dose Route Start Last Admin Trade Name Freq PRN Reason Stop Dose Admin Hydrocodone Bitart/Acetaminophen 1 tab 03/27/20 12:52 03/27/20 17:23 Alpine 5/325 PO 1 tab Q4H PRN Administration Mild Pain (1-3) Hydrocodone Bitart/Acetaminophen 2 tab 03/27/20 12:52 03/28/20 18:26 Alpine 5/325 PO 2 tab Q4H PRN Administration Moderate Pain (4-6) Amlodipine Besylate 5 mg 03/26/20 09:00 03/28/20 09:57 Norvasc PO 5 mg DAILY LAKSHMI Administration Aspirin 81 mg 03/28/20 09:00 03/28/20 09:57 Aspirin Chewable PO 81 mg QAM LAKSHMI Administration Atorvastatin Calcium 40 mg 03/24/20 21:00 03/28/20 21:42 Lipitor PO 40 mg HS LAKSHMI Administration Enoxaparin Sodium 40 mg 03/23/20 09:00 03/28/20 09:57 Lovenox SC 40 mg 0900 LAKSHMI Administration Famotidine 20 mg 03/22/20 21:00 03/28/20 21:42 Pepcid PO 20 mg BID LAKSHMI Administration Fentanyl 50 mcg 03/27/20 12:52 03/28/20 21:40 Sublimaze SLOW IVP 50 mcg Q2H PRN Administration Severe Pain (7-10) Gabapentin 300 mg 03/24/20 09:00 03/28/20 09:57 Neurontin PO 300 mg DAILY LAKSHMI Administration Ceftriaxone Sodium 1 gm/ 100 mls @ 200 mls/hr 03/25/20 09:00 03/28/20 09:57 Sodium Chloride IVPB 100 mls Q24HR LAKSHMI Administration Sodium Chloride 1,000 mls @ 50 mls/hr 03/26/20 10:45 03/28/20 03:27 Normal Saline 0.9% IV 1,000 mls .Q20H LAKSHMI Administration Sodium Chloride 10 ml 03/27/20 21:00 03/28/20 21:42 Flush - Normal Saline IVF 10 ml Q12HR LAKSHMI Administration Tamsulosin HCl 0.4 mg 03/26/20 09:00 03/28/20 09:57 Flomax PO 0.4 mg DAILY LAKSHMI Administration Tramadol HCl 50 mg 03/23/20 02:26 03/26/20 23:38 Ultram PO 50 mg Q4H PRN Administration Pain - Exam General Appearance: NAD, awake alert Heart: RRR, no murmur, no gallops, no rubs, normal peripheral pulses Respiratory: CTAB, no wheezes, no rales, no ronchi, normal chest expansion, no tachypnea, normal percussion Gastrointestinal: soft, non-tender, non-distended, normal bowel sounds, no palpable masses, no hepatomegaly, no splenomegaly, no bruit Extremities: no cyanosis, no clubbing Extremities - other findings: General edema BLE's. Slight erythema. Skin: normal turgor Neurological: no focal deficits Musculoskeletal: normal tone Psychiatric: normal affect, normal behavior, A&O x 3 Hosp A/P (1) Cellulitis of lower extremity Code(s): L03.119 - CELLULITIS OF UNSPECIFIED PART OF LIMB Status: Acute (2) Peripheral vascular disease Code(s): I73.9 - PERIPHERAL VASCULAR DISEASE, UNSPECIFIED Status: Acute (3) CAD (coronary artery disease) Code(s): I25.10 - ATHSCL HEART DISEASE OF [place] CORONARY ARTERY W/O ANG PCTRS Status: Chronic (4) Dyslipidemia Code(s): E78.5 - HYPERLIPIDEMIA, UNSPECIFIED Status: Chronic (5) Hypertension Code(s): I10 - ESSENTIAL (PRIMARY) HYPERTENSION Status: Chronic (6) Cardiomyopathy Code(s): I42.9 - CARDIOMYOPATHY, UNSPECIFIED Status: Acute - Plan Cellulitis: Has wound on the medial left ankle with open wound. Had prior surgery there and a screw backed out at one time. Never healed properly. Culture growing E. coli and Enterobacter. ID consult pending. PVD: Doing well post-op. Atherectomy and fem-pop bypass. CVS following. Appears to have been successful. Hx of ischemic CM: EF 30-35%. Declined LifeVest/Defib. No evidence of decompensation. On Lasix. Looks like had been on Coreg. Will need to resume. HTN: Amlodipine. PRN's. CAD: Stable.
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
[2020-03-28 22:54] LABS: Bacteria/HPF None Seen HPF (None Seen); Bilirubin Negative (Negative); Blood, Urine 1+ (Negative); Clarity Clear (Clear); Glucose, Urine (Dipstick) Normal (Negative); Leukocyte 75 Leu/uL (Negative); Mucous/LPF Rare LPF (<2+); Nitrite Negative (Negative); Protein, Urine (Dipstick) Negative (Neg-Trace); Squamous Epithelial 0-3 HPF (0-3); Urobilinogen Normal mg/dL (Less than 2)
[2020-03-28 22:59] LABS: Urine Culture Reflex Yes Yes
[2020-03-28] MEDS ORDERED: Carvedilol 3.125 MG TAB PO SCH (23:00)
[2020-03-29] MEDS: Sodium Chloride 0.9% 1,000 ML IV SCH ×2 (00:10→22:03)
[2020-03-29 01:29] LABS: CKMB 44.5 ng/mL (0-6.6)
[2020-03-29] MEDS: Fentanyl 100 MCG/2 ML VIAL SLOW IVP PRN ×3 (02:12→11:03)
[2020-03-29] MEDS: HYDROcodone/Acetaminophen 5/325 mg Tablet PO PRN ×5 (04:09→22:01)
[2020-03-29 05:01] LABS: CKMB 56.4 ng/mL (0-6.6)
[2020-03-29] MEDS: Amiodarone 450 MG in Dextrose 5% in Water 250 ML IVPB SCH (07:34)
[2020-03-29] MEDS: Amlodipine 5 MG TAB PO SCH (09:10)
[2020-03-29] MEDS: Famotidine 20 MG TAB PO SCH ×2 (09:10→21:26)
[2020-03-29] MEDS: Tamsulosin HCl 0.4 MG CAP PO SCH (09:11)
[2020-03-29] MEDS: Furosemide 40 MG TAB PO SCH (09:11)
[2020-03-29] MEDS: Carvedilol 3.125 MG TAB PO SCH ×2 (09:11→18:05)
[2020-03-29] MEDS: Aspirin Chewable 81 MG TAB PO SCH (09:11)
[2020-03-29] MEDS: Gabapentin 300 MG CAP PO SCH (09:11)
[2020-03-29] MEDS: cefTRIAXone\\ROCEPHIN 1 GM in Sodium Chloride 0.9% 100 ML IVPB SCH (09:12)
[2020-03-29] MEDS: Enoxaparin Sodium 40 MG/0.4 ML SYRINGE SC SCH (09:12)
--- NOTE | 2020-03-29 14:32 | CON ---
DATE OF CONSULTATION: REASON FOR CONSULTATION: Elevated troponin. HISTORY OF PRESENT ILLNESS: Mr. Ochoa is a 69-year-old gentleman, whom I have seen and evaluated in the past. He has a history of CAD, status post GA in addition to bypass surgery. He also has a history of ischemic cardiomyopathy. He has opted for medical therapy in the past. During his last hospitalization with a CVA, he opted against the use of a LifeVest. He states he has been compliant with beta-blaze therapy and aspirin only. Recently, the patient presented with nonhealing ulcer. He underwent a fem-pop bypass by Dr. Herrera. He developed atrial fibrillation with RVR overnight. He did have ST-segment elevation noted during atrial fibrillation with RVR. He denies any previous recent history of chest pain, pressure, shortness of breath, or other associated symptoms. His atrial fibrillation resolved and is now in sinus rhythm. His EKG is consistent with Q-waves inferiorly. PAST MEDICAL HISTORY: As described above. Recent tib-fib fracture with poor healing. SOCIAL HISTORY: He quit all tobacco products in October. ALLERGIES: NONE. HOME MEDICATIONS: Aspirin, Coreg. REVIEW OF SYSTEMS: A 10-point review of systems is reviewed as above, otherwise negative. PHYSICAL EXAMINATION: GENERAL: Patient is a pleasant male, who is in no acute distress. The patient appears their stated age. VITAL SIGNS: Blood pressure 101/54, pulse 75. Temperature, afebrile. NEUROLOGIC: The patient is alert and oriented x3 with no focal neurologic deficits. HEENT: Sclerae without icterus. Mouth has moist mucous membranes with normal pallor. NECK: No JVD. Carotid upstroke brisk. No bruits bilaterally. LUNGS: Clear to auscultation with unlabored respirations. BACK: No scoliosis or kyphosis. CARDIAC: Regular rate and rhythm with normal S1 and S2. No S3 or S4 noted. No significant rubs, murmurs, thrills, or gallops noted throughout the precordium. PMI is not displaced. There is no parasternal heave. ABDOMEN: Soft, nontender, nondistended. No peritoneal signs present. No hepatosplenomegaly. No abnormal striae. EXTREMITIES: 2+ femoral and 2+ dorsalis pedis pulses. No cyanosis, clubbing, or edema. SKIN: No gross abnormalities. PERTINENT LABORATORY DATA: Hemoglobin 10.4, hematocrit 30.4. Peak troponin 9.3, peak CK-MB of 56. IMPRESSION: 1. Elevated troponin. 2. Atrial fibrillation with RVR. 3. Coronary artery disease. 4. Ischemic cardiomyopathy. RECOMMENDATIONS: Mr. Ochoa's ST-segment elevation during atrial fibrillation is likely related to ischemia to an aneurysmal inferior wall. He does have Q-waves noted inferiorly. He has no previous symptoms of angina or shortness of breath. I discussed proceeding with a more aggressive versus conservative approach. The patient has opted for a more conservative approach in the past. He again opted for conservative therapy. We would recommend continued medical treatment. We would recommend aspirin and Plavix in addition to statin therapy, beta blaze therapy. He is currently on IV amiodarone. I would recommend continuing amiodarone. He continues to have nonsustained VT. I discussed risks and benefits of amiodarone therapy including liver toxicity, thyroid toxicity, and lung toxicity. Given the above, he has agreed to proceed with taking amiodarone therapy. We would recommend 400 mg one p.o. b.i.d. x7 days, then 400 mg one time a day for one month only. Job ID: [id number]
--- NOTE | 2020-03-29 15:40 | PDOC.HOSPP ---
- Subjective Encounter Date: 03/29/20 Subjective: Patient is doing well. His legs continue to feel well. Events of last night were noted. Patient had onset of atrial fibrillation with RVR. He was started on amiodarone. He has converted to sinus rhythm. Currently he is asymptomatic. - Objective Vital Signs & Weight: Vital Signs (12 hours) Temp Pulse Resp BP BP BP Pulse Ox 03/29/20 09:10 99 134/70 03/29/20 08:00 97.7 F 75 18 101/54 L 92 L 03/29/20 06:00 75 16 103/69 03/29/20 03:56 98.5 F 89 16 103/69 99 Weight Admit Weight 169 lb 12.095 oz Weight 169 lb 12.095 oz Most Recent Monitor Data Heart Rate from ECG 85 NIBP 117/70 NIBP BP-Mean 85 Respiration from ECG 19 SpO2 99 I&O: 03/28/20 03/29/20 03/30/20 06:59 06:59 06:59 Intake Total 963 Output Total 1118 0 Balance -155 0 Result Diagrams: 03/28/20 03:13 03/28/20 20:04 Hospitalist ROS - Medication Medications: Active Medications Generic Name Dose Route Start Last Admin Trade Name Freq PRN Reason Stop Dose Admin Hydrocodone Bitart/Acetaminophen 1 tab 03/27/20 12:52 03/27/20 17:23 [place] 5/325 PO 1 tab Q4H PRN Administration Mild Pain (1-3) Hydrocodone Bitart/Acetaminophen 2 tab 03/27/20 12:52 03/29/20 13:32 [place] 5/325 PO 2 tab Q4H PRN Administration Moderate Pain (4-6) Amlodipine Besylate 5 mg 03/26/20 09:00 03/29/20 09:10 Norvasc PO 5 mg DAILY ALKSHMI Administration Aspirin 81 mg 03/28/20 09:00 03/29/20 09:11 Aspirin Chewable PO 81 mg QAM LAKSHMI Administration Atorvastatin Calcium 40 mg 03/24/20 21:00 03/28/20 21:42 Lipitor PO 40 mg HS LAKSHMI Administration Carvedilol 3.125 mg 03/29/20 08:00 03/29/20 09:11 Coreg PO 3.125 mg BID-WM LAKSHMI Administration Enoxaparin Sodium 40 mg 03/23/20 09:00 03/29/20 09:12 Lovenox SC 40 mg 0900 LAKSHMI Administration Famotidine 20 mg 03/22/20 21:00 03/29/20 09:10 Pepcid PO 20 mg BID LAKSHMI Administration Fentanyl 50 mcg 03/27/20 12:52 03/29/20 11:03 Sublimaze SLOW IVP 50 mcg Q2H PRN Administration Severe Pain (7-10) Furosemide 40 mg 03/29/20 07:30 03/29/20 09:11 Lasix PO 40 mg DAILY-AC LAKSHMI Administration Gabapentin 300 mg 03/24/20 09:00 03/29/20 09:11 Neurontin PO 300 mg DAILY LAKSHMI Administration Ceftriaxone Sodium 1 gm/ 100 mls @ 200 mls/hr 03/25/20 09:00 03/29/20 09:12 Sodium Chloride IVPB 100 mls Q24HR LAKSHMI Administration Sodium Chloride 1,000 mls @ 50 mls/hr 03/26/20 10:45 03/29/20 00:10 Normal Saline 0.9% IV Not Given .Q20H LAKSHMI Amiodarone HCl 450 mg/ 259 mls @ 0 mls/hr 03/29/20 00:15 03/29/20 07:34 Dextrose/Water IVPB 259 mls INF LAKSHMI Administration Protocol Per Protocol Sodium Chloride 10 ml 03/27/20 21:00 03/29/20 09:13 Flush - Normal Saline IVF 10 ml Q12HR LAKSHMI Administration Tamsulosin HCl 0.4 mg 03/26/20 09:00 03/29/20 09:11 Flomax PO 0.4 mg DAILY LAKSHMI Administration Tramadol HCl 50 mg 03/23/20 02:26 03/26/20 23:38 Ultram PO 50 mg Q4H PRN Administration Moderate Pain (4-6) - Exam General Appearance: NAD, awake alert Heart: RRR, no murmur, no gallops, no rubs, normal peripheral pulses Respiratory: CTAB, no wheezes, no rales, no ronchi, normal chest expansion, no tachypnea, normal percussion Gastrointestinal: soft, non-tender, non-distended, normal bowel sounds, no palpable masses, no hepatomegaly, no splenomegaly, no bruit Extremities - other findings: Mild generalized erythema both lower extremities. They are warm and dry Skin: normal turgor Skin - other findings: Postsurgical dressing in place Musculoskeletal: normal tone, normal strength, no muscle wasting Psychiatric: normal affect, normal behavior, A&O x 3 Hosp A/P (1) Cellulitis of lower extremity Code(s): L03.119 - CELLULITIS OF UNSPECIFIED PART OF LIMB Status: Acute (2) Peripheral vascular disease Code(s): I73.9 - PERIPHERAL VASCULAR DISEASE, UNSPECIFIED Status: Acute (3) CAD (coronary artery disease) Code(s): I25.10 - ATHSCL HEART DISEASE OF [place] CORONARY ARTERY W/O ANG PCTRS Status: Chronic (4) Dyslipidemia Code(s): E78.5 - HYPERLIPIDEMIA, UNSPECIFIED Status: Chronic (5) Hypertension Code(s): I10 - ESSENTIAL (PRIMARY) HYPERTENSION Status: Chronic (6) Cardiomyopathy Code(s): I42.9 - CARDIOMYOPATHY, UNSPECIFIED Status: Acute (7) Atrial fibrillation with rapid ventricular response Code(s): I48.91 - UNSPECIFIED ATRIAL FIBRILLATION Status: Acute (8) Nonsustained ventricular tachycardia Code(s): I47.2 - VENTRICULAR TACHYCARDIA Status: Acute - Plan Cellulitis: Has wound on the medial left ankle with open wound. Had prior surgery there and a screw backed out at one time. Never healed properly. Culture growing E. coli and Enterobacter. ID consult recommendations appreciated. PVD: Doing well post-op. Endarterectomy and fem-pop bypass on the left. CVS following. Appears to have been successful. Hx of ischemic CM: EF 30-35%. Declined LifeVest/Defib. No evidence of decompensation. On Lasix. Looks like had been on Coreg. Will need to resume. N STEMI: Patient's troponin is over 9. Suspect this is demand ischemia due to the A. fib with RVR. Patient has underlying coronary disease. Did discuss the case with Dr. Haji. Plan is for medical management. Should be back on Plavix, aspirin, beta-blaze and statin. A. fib with RVR: Patient's converted back to a sinus rhythm. He continues on the amiodarone drip. Will discuss with Dr. Haji determine if he is wanting him to stay on that versus switching him over to the p.o. amiodarone now. Nonsustained V. tach: The patient has continued to have some short runs of nonsustained V. tach on telemetry. Continue beta-blaze and amiodarone. HTN: Coreg. May need to stop the amlodipine give the CM. CAD: Stable.
--- NOTE | 2020-03-29 17:38 | PRG ---
DATE OF SERVICE: 03/29/2020 SUBJECTIVE: Luther Ochoa has no complaints. OBJECTIVE: VITAL SIGNS: He is afebrile. Heart rate is 99, blood pressure 134/70, oximetry is 92%, blood pressure 103/55. LUNGS: Clear. HEART: Regular rhythm. ABDOMEN: Soft. Apparently, he had an episode of atrial fibrillation IMPRESSION: 1. Status post lower extremity revascularization. 2. Perioperative atrial fibrillation. 3. Status post hardware placement to left tibia and fibula with recent removal of the screw. The wound will be followed clinically and if it fails to heal, then it can be re-evaluated by his orthopedic surgeon for infection. 4. Cellulitis, improving. 5. Hypertension. 6. Cardiomyopathy. 7. Elevated troponin. 8. Nonsustained ventricular tachycardia. He appears to be stable from pulmonary perspective. Most of his issues at this time are vascular and cardiac, so we will sign off. Job ID: [id number]
--- NOTE | 2020-03-29 19:00 | PRG ---
DATE OF SERVICE: 03/29/2020 SUBJECTIVE: The patient had an episode of atrial fibrillation with RVR, bumped his troponins ,was transferred to [facility]. He is feeling well and was getting ready to eat dinner. Discussed his case with Dr. Haji and I opted for medical management. He had some aspirin and Plavix added to his regimen. No headaches. No chest pain actually noted. No dyspnea. Pretty much if nurse had not picked it up, he would not have felt any difference. OBJECTIVE: VITAL SIGNS: Continues to be afebrile, BP 103/55, pulse 83, O2 saturation 92% on room air. GENERAL: In no distress. LUNGS: Clear. HEART: S1, S2, regular rate. ABDOMEN: Soft, not distended and voiding in the urinal. EXTREMITIES: The left foot is warm. Ulcer in the medial malleolus has a kind of whitish base, measures about 1 cm, round shaped. The patient describes a number of blisters above that one that were scrubbed by the nurse and I asked his daughter to send me a picture they took a few days ago to see if it could be consistent with herpes zoster. LABORATORY DATA: White cell count is 8.5, hemoglobin 10.4, and platelets 183. Creatinine 0.98, and troponin peaked at 9.3. ASSESSMENT AND DISCUSSION: Chronic smoking, peripheral vascular disease, coronary artery disease, ischemic changes to left leg, status post revascularization Dr. Herrera and chronic wound medial malleolus with question of herpes zoster based on the description of the other blisters in the medial aspect of his left leg. We will evaluate the photo that was taken a few days ago by his daughter and see if it is possible. Await on the effects of the revascularization and the healing of the fracture. At the moment, there is no periosteal elevation, just a fracture without any callus formation. Job ID: [id number]
[2020-03-29] MEDS: Amiodarone 200 MG TAB PO SCH (21:26)
[2020-03-29] MEDS: Atorvastatin Calcium 40 MG TAB PO SCH (21:26)
[2020-03-30] MEDS: Amiodarone 450 MG in Dextrose 5% in Water 250 ML IVPB SCH ×2 (03:44→17:59)
[2020-03-30] MEDS: HYDROcodone/Acetaminophen 5/325 mg Tablet PO PRN ×5 (03:53→21:57)
[2020-03-30] MEDS: Amiodarone 200 MG TAB PO SCH ×2 (09:04→20:06)
[2020-03-30] MEDS: Carvedilol 3.125 MG TAB PO SCH ×2 (09:04→16:25)
[2020-03-30] MEDS: Furosemide 40 MG TAB PO SCH (09:04)
[2020-03-30] MEDS: Clopidogrel Bisulfate 75 MG TAB PO SCH (09:05)
[2020-03-30] MEDS: Enoxaparin Sodium 40 MG/0.4 ML SYRINGE SC SCH (09:05)
[2020-03-30] MEDS: Tamsulosin HCl 0.4 MG CAP PO SCH (09:05)
[2020-03-30] MEDS: Gabapentin 300 MG CAP PO SCH (09:05)
[2020-03-30] MEDS: Aspirin 81 mg Enteric Coated Tablet PO SCH (09:05)
[2020-03-30] MEDS: Famotidine 20 MG TAB PO SCH ×2 (09:05→20:05)
[2020-03-30] MEDS: cefTRIAXone\\ROCEPHIN 1 GM in Sodium Chloride 0.9% 100 ML IVPB SCH (09:58)
--- NOTE | 2020-03-30 13:59 | PRG ---
DATE OF SERVICE: 03/30/2020 SUBJECTIVE: Mr. Ochoa is doing well. No current complaints. No chest pain, pressure, shortness of breath, or associated symptoms. He continues to be on antibiotic therapy. OBJECTIVE: VITAL SIGNS: Blood pressure 113/62, pulse 73, and temperature 98.7. LUNGS: Clear to auscultation. HEART: Regular rate and rhythm. ABDOMEN: Soft, nontender, and nondistended. EXTREMITIES: No changes. PERTINENT LABORATORY DATA: Hemoglobin 10.4. IMPRESSION: 1. Elevated troponin. 2. Atrial fibrillation with rapid ventricular response. 3. Ischemic cardiomyopathy. 4. Status post bypass surgery. 5. Remote tobacco abuse. Mr. Ochoa is currently doing well from a CV standpoint. He continues to be in sinus rhythm. RECOMMENDATIONS: 1. Amiodarone 400 mg p.o. b.i.d. for 1 week, then decrease to 400 mg p.o. q.a.m. x1 day. 2. Continue amlodipine 5 mg daily, aspirin 81 daily, and carvedilol 3.125 one p.o. b.i.d. in addition to Plavix 75 daily. 3. Hold HERNAN inhibitor therapy and ARB until blood pressure is more stable. I also discussed LifeVest once again with Mr. Ochoa in addition to ICD placement. He is not interested in ICD or LifeVest. ICD would certainly be difficult given recent lower extremity infection and would benefit from LifeVest. Discussed risks and benefits including sudden cardiac . He states at this point unfortunately he is not interested. Job ID: [id number]
--- NOTE | 2020-03-30 19:01 | PDOC.HOSPP ---
- Subjective Encounter Date: 03/30/20 Subjective: Doing great. Denies complaints. Leg feels good. He had an IV in the right FA that was removed. Purulent liquid extruded through the opening. His forearm is a little sore, but not painful. - Objective Vital Signs & Weight: Vital Signs (12 hours) Temp Pulse Resp BP BP Pulse Ox 03/30/20 15:15 98.6 F 80 18 131/60 96 03/30/20 11:31 98.7 F 73 16 113/62 96 03/30/20 07:42 98.4 F 83 16 118/60 96 Weight Admit Weight 169 lb 12.095 oz Weight 185 lb Most Recent Monitor Data Heart Rate from ECG 85 NIBP 117/70 NIBP BP-Mean 85 Respiration from ECG 19 SpO2 99 I&O: 03/29/20 03/30/20 03/31/20 06:59 06:59 06:59 Intake Total 1562.4 1244 Output Total 0 1850 820 Balance 0 -287.6 424 Result Diagrams: 03/28/20 03:13 03/28/20 20:04 Hospitalist ROS - Medication Medications: Active Medications Generic Name Dose Route Start Last Admin Trade Name Freq PRN Reason Stop Dose Admin Hydrocodone Bitart/Acetaminophen 1 tab 03/27/20 12:52 03/27/20 17:23 [place] 5/325 PO 1 tab Q4H PRN Administration Mild Pain (1-3) Hydrocodone Bitart/Acetaminophen 2 tab 03/27/20 12:52 03/30/20 17:58 [place] 5/325 PO 2 tab Q4H PRN Administration Moderate Pain (4-6) Amiodarone HCl 400 mg 03/29/20 21:00 03/30/20 09:04 Cordarone PO 04/05/20 21:01 400 mg BID LAKSHMI Administration Aspirin 81 mg 03/30/20 09:00 03/30/20 09:05 Ecotrin PO 81 mg DAILY LAKSHMI Administration Atorvastatin Calcium 40 mg 03/24/20 21:00 03/29/20 21:26 Lipitor PO 40 mg HS LAKSHMI Administration Carvedilol 3.125 mg 03/29/20 08:00 03/30/20 16:25 Coreg PO 3.125 mg BID-WM LAKSHMI Administration Clopidogrel Bisulfate 75 mg 03/30/20 09:00 03/30/20 09:05 Plavix PO 75 mg DAILY LAKSHMI Administration Enoxaparin Sodium 40 mg 03/23/20 09:00 03/30/20 09:05 Lovenox SC 40 mg 0900 LAKSHMI Administration Famotidine 20 mg 03/22/20 21:00 03/30/20 09:05 Pepcid PO 20 mg BID LAKSHMI Administration Fentanyl 25 mcg 03/27/20 12:52 03/30/20 00:59 Sublimaze SLOW IVP 25 mcg Q2H PRN Administration Moderate Pain (4-6) Fentanyl 50 mcg 03/27/20 12:52 03/29/20 11:03 Sublimaze SLOW IVP 50 mcg Q2H PRN Administration Severe Pain (7-10) Furosemide 40 mg 03/29/20 07:30 03/30/20 09:04 Lasix PO 40 mg DAILY-AC LAKSHMI Administration Gabapentin 300 mg 03/24/20 09:00 03/30/20 09:05 Neurontin PO 300 mg DAILY LAKSHMI Administration Ceftriaxone Sodium 1 gm/ 100 mls @ 200 mls/hr 03/25/20 09:00 03/30/20 09:58 Sodium Chloride IVPB 100 mls Q24HR LAKSHMI Administration Amiodarone HCl 450 mg/ 259 mls @ 0 mls/hr 03/29/20 00:15 03/30/20 17:59 Dextrose/Water IVPB 259 mls INF LAKSHMI Administration Protocol Per Protocol Sodium Chloride 10 ml 03/27/20 21:00 03/30/20 09:05 Flush - Normal Saline IVF 10 ml Q12HR LAKSHMI Administration Tamsulosin HCl 0.4 mg 03/26/20 09:00 03/30/20 09:05 Flomax PO 0.4 mg DAILY LAKSHMI Administration Tramadol HCl 50 mg 03/23/20 02:26 03/26/20 23:38 Ultram PO 50 mg Q4H PRN Administration Moderate Pain (4-6) - Exam General Appearance: NAD, awake alert Heart: RRR, no murmur, no gallops, no rubs, normal peripheral pulses Respiratory: CTAB, no wheezes, no rales, no ronchi, normal chest expansion, no tachypnea, normal percussion Gastrointestinal: soft, non-tender, non-distended, normal bowel sounds, no palpable masses, no hepatomegaly, no splenomegaly, no bruit Extremities: 1+ LE edema (Right forearm. There is some evidence of ecchymoses on the flexor surface. Some slightly bloody purulent fluid extruded from the IV site opening. Mildly generally edematous and tender over the forearm. No erythema or warmth.) Extremities - other findings: Trace edema. Left foot is quite normally warm. Skin: normal turgor Neurological: no focal deficits Musculoskeletal: normal tone Psychiatric: normal affect, normal behavior, A&O x 3 Hosp A/P (1) Cellulitis of lower extremity Code(s): L03.119 - CELLULITIS OF UNSPECIFIED PART OF LIMB Status: Acute (2) Peripheral vascular disease Code(s): I73.9 - PERIPHERAL VASCULAR DISEASE, UNSPECIFIED Status: Acute (3) CAD (coronary artery disease) Code(s): I25.10 - ATHSCL HEART DISEASE OF [place] CORONARY ARTERY W/O ANG PCTRS Status: Chronic (4) Dyslipidemia Code(s): E78.5 - HYPERLIPIDEMIA, UNSPECIFIED Status: Chronic (5) Hypertension Code(s): I10 - ESSENTIAL (PRIMARY) HYPERTENSION Status: Chronic (6) Cardiomyopathy Code(s): I42.9 - CARDIOMYOPATHY, UNSPECIFIED Status: Acute (7) Atrial fibrillation with rapid ventricular response Code(s): I48.91 - UNSPECIFIED ATRIAL FIBRILLATION Status: Acute (8) Nonsustained ventricular tachycardia Code(s): I47.2 - VENTRICULAR TACHYCARDIA Status: Acute (9) Myocardial infarction Code(s): I21.9 - ACUTE MYOCARDIAL INFARCTION, UNSPECIFIED Status: Acute Qualifiers: Myocardial infarction type: type 2 Qualified Code(s): I21.A1 - Myocardial infarction type 2 - Plan Cellulitis: Has wound on the medial left ankle with open wound. Culture growing E. coli and Enterobacter. ID consult recommendations appreciated. PVD: Doing well post-op. Endarterectomy and fem-pop bypass on the left. CVS following. Appears to have been successful. Foot appears to be doing quite well. Hx of ischemic CM: EF 30-35%. Declined LifeVest/Defib. No evidence of decompensation. On Lasix, Coreg. HERNAN inhibitor/ARB being withheld for now. May be added later when blood pressure is more stabilized. N STEMI type II: Patient's troponin is over 9. Suspect this is demand ischemia due to the A. fib with RVR. Patient has underlying coronary disease. Did discuss the case with Dr. Haji. Plan is for medical management. Should be back on Plavix, aspirin, beta-blaze and statin. A. fib with RVR: Patient's converted back to a sinus rhythm. He continues on the amiodarone but now on oral regimen. Nonsustained V. tach: The patient has continued to have some short runs of nonsustained V. tach on telemetry. Continue beta-blaze and amiodarone. HTN: Coreg. May need to stop the amlodipine give the CM. CAD: Stable. Disposition: Continue to monitor the patient's healing process after his re-vascularization procedure. Hopefully he may be stable for discharge in a couple of days. Right forearm drainage: Patient appears to have some ecchymoses in the forearm area. I suspect he had some bleeding into the forearm soft tissue. I believe what we see extruded is likely residual old blood but does have a purulent appearance. Culture will be obtained. He remains on Rocephin.
[2020-03-30] MEDS: Atorvastatin Calcium 40 MG TAB PO SCH (20:06)
[2020-03-31] MEDS: HYDROcodone/Acetaminophen 5/325 mg Tablet PO PRN ×5 (03:37→21:42)
[2020-03-31 04:56] LABS: #Eosinphils 0.2 thou/uL (0.0-0.7); #Lymphocytes 1.4 thou/uL (1.20-3.40); #Neutrophils 5.8 thou/uL (1.40-6.50); %Basophils 0.5 % (0.0-1.0); %Eosinophils 2.4 % (0.0-10.0); %Lymphocytes 16.7 % (21.0-51.0); %Monocytes 12.1 % (0.0-10.0); %Neutrophils 68.3 % (42.0-75.0); Hemoglobin 9.6 g/dL (14.0-18.0); Mean Corpuscular HGB CONC 34.1 g/dL (32.0-36.0); Mean Corpuscular Hemoglobin 31.6 pg (27.0-31.0); Mean Corpuscular Volume 92.8 fL (78.0-98.0); Mean Platelet Volume 8.2 fL (7.4-10.4); Platelet Count 208 thou/uL (130-400); RBC Distribution Width 12.7 % (11.5-14.5); Red Blood Cell (RBC) Count 3.03 mill/uL (4.70-6.10); White Blood Cell (WBC) Count 8.5 thou/uL (4.8-10.8)
[2020-03-31 05:18] LABS: Anion Gap 9 mmol/L (10-20); BUN (Urea Nitrogen) 10 mg/dL (8.4-25.7); Calc. Creatinine Clearance 93 mL/min (70-130); Calcium 8.4 mg/dL (7.8-10.44); Carbon Dioxide 29 mmol/L (23-31); Chloride 102 mmol/L (98-107); Estimated GFR-MDRD 85; Glucose 102 mg/dL (80-115); Potassium 3.2 mmol/L (3.5-5.1); Sodium 137 mmol/L (136-145)
[2020-03-31] MEDS: Furosemide 40 MG TAB PO SCH (08:37)
[2020-03-31] MEDS: Carvedilol 3.125 MG TAB PO SCH ×2 (08:38→17:05)
[2020-03-31] MEDS: cefTRIAXone\\ROCEPHIN 1 GM in Sodium Chloride 0.9% 100 ML IVPB SCH (08:38)
[2020-03-31] MEDS: Enoxaparin Sodium 40 MG/0.4 ML SYRINGE SC SCH (08:38)
[2020-03-31] MEDS: Famotidine 20 MG TAB PO SCH ×2 (08:38→21:44)
[2020-03-31] MEDS: Aspirin 81 mg Enteric Coated Tablet PO SCH (08:38)
[2020-03-31] MEDS: Clopidogrel Bisulfate 75 MG TAB PO SCH (08:38)
[2020-03-31] MEDS: Gabapentin 300 MG CAP PO SCH (08:38)
[2020-03-31] MEDS: Amiodarone 200 MG TAB PO SCH ×2 (08:38→21:43)
[2020-03-31] MEDS: Tamsulosin HCl 0.4 MG CAP PO SCH (08:38)
[2020-03-31] MEDS ORDERED: Potassium Chloride 20 MEQ TAB PO SCH (09:15)
--- NOTE | 2020-03-31 14:39 | PDOC.HOSPP ---
- Subjective Encounter Date: 03/31/20 Encounter Time: 11:00 non-verbal Subjective: F/u: cellulitis Patient reports improved pain in his left leg. He states he originally thought it was shingles but his wound seems to be improving with antibiotics. Reports that wound care has not come in the past three days to change his dressing and is requesting them. Pt states he is doing much better after bypass. States that prior to this hospitalization he used to sleep with his left leg laying down on the floor Right arm swelling - He also had some right arm swelling yesterday, per nursing there was puff coming out of it, however patient's daughter drained the pus before a culture could be obtained. Pt reports no pain in his right arm Pt reports no ride to go home - Objective Vital Signs & Weight: Vital Signs (12 hours) Temp Pulse Resp BP BP Pulse Ox 03/31/20 11:25 98.6 F 77 16 111/55 L 95 03/31/20 07:30 98.0 F 69 16 101/53 L 96 03/31/20 03:50 97.6 F 71 20 101/53 L 95 Weight Admit Weight 169 lb 12.095 oz Weight 185 lb Most Recent Monitor Data Heart Rate from ECG 85 NIBP 117/70 NIBP BP-Mean 85 Respiration from ECG 19 SpO2 99 I&O: 03/30/20 03/31/20 04/01/20 06:59 06:59 06:59 Intake Total 1562.4 1946 100 Output Total 1850 2130 100 Balance -287.6 -184 0 Result Diagrams: 03/31/20 04:22 03/31/20 04:22 Hospitalist ROS - Review of Systems Constitutional: denies: fever, chills - Medication Medications: Active Medications Generic Name Dose Route Start Last Admin Trade Name Freq PRN Reason Stop Dose Admin Hydrocodone Bitart/Acetaminophen 1 tab 03/27/20 12:52 03/27/20 17:23 Hobgood 5/325 PO 1 tab Q4H PRN Administration Mild Pain (1-3) Hydrocodone Bitart/Acetaminophen 2 tab 03/27/20 12:52 03/31/20 13:08 Hobgood 5/325 PO 2 tab Q4H PRN Administration Moderate Pain (4-6) Amiodarone HCl 400 mg 03/29/20 21:00 03/31/20 08:38 Cordarone PO 04/05/20 21:01 400 mg BID [facility] Administration Aspirin 81 mg 03/30/20 09:00 03/31/20 08:38 Ecotrin PO 81 mg DAILY [facility] Administration Atorvastatin Calcium 40 mg 03/24/20 21:00 03/30/20 20:06 Lipitor PO 40 mg HS [facility] Administration Carvedilol 3.125 mg 03/29/20 08:00 03/31/20 08:38 Coreg PO 3.125 mg BID-WM LAKSHMI Administration Clopidogrel Bisulfate 75 mg 03/30/20 09:00 03/31/20 08:38 Plavix PO 75 mg DAILY [facility] Administration Enoxaparin Sodium 40 mg 03/23/20 09:00 03/31/20 08:38 Lovenox SC 40 mg 09 [facility] Administration Famotidine 20 mg 03/22/20 21:00 03/31/20 08:38 Pepcid PO 20 mg BID [facility] Administration Fentanyl 25 mcg 03/27/20 12:52 03/30/20 00:59 Sublimaze SLOW IVP 25 mcg Q2H PRN Administration Moderate Pain (4-6) Fentanyl 50 mcg 03/27/20 12:52 03/29/20 11:03 Sublimaze SLOW IVP 50 mcg Q2H PRN Administration Severe Pain (7-10) Furosemide 40 mg 03/29/20 07:30 03/31/20 08:37 Lasix PO Not Given DAILY-AC [facility] Gabapentin 300 mg 03/24/20 09:00 03/31/20 08:38 Neurontin PO 300 mg DAILY [facility] Administration Ceftriaxone Sodium 1 gm/ 100 mls @ 200 mls/hr 03/25/20 09:00 03/31/20 08:38 Sodium Chloride IVPB 100 mls Q24HR [facility] Administration Sodium Chloride 10 ml 03/27/20 21:00 03/31/20 08:39 Flush - Normal Saline IVF 10 ml Q12HR [facility] Administration Tamsulosin HCl 0.4 mg 03/26/20 09:00 03/31/20 08:38 Flomax PO 0.4 mg DAILY [facility] Administration Tramadol HCl 50 mg 03/23/20 02:26 03/26/20 23:38 Ultram PO 50 mg Q4H PRN Administration Moderate Pain (4-6) - Exam General Appearance: NAD, awake alert Eye: PERRL, anicteric sclera ENT: normocephalic atraumatic, no oropharyngeal lesions Neck: no JVD Heart: RRR, no murmur, no gallops, no rubs Respiratory: CTAB, no wheezes, no rales, no ronchi Gastrointestinal: soft, non-tender, non-distended, normal bowel sounds Extremities: no cyanosis Extremities - other findings: left leg wrapped in gauze, serous fluid noted. Dim DP pulse on right Skin - other findings: some mild erythema ulceration left leg Neurological: cranial nerve grossly intact, no focal deficits Hosp A/P - Plan Chest x ray: normal Lower extremity arterial US: decreased velocities in SFA, popliteal artery, posterior tibial artery, dorsalis pedis artery, severe RLE atheroscleortic arterial vascular disease CTA: Abdominal aortic aneurysm 4 cm with mural thrombus.OCclusion of bilateral superficial femoral arteries, right interal iliac artery with severe narrowing at origin of left internal iliac artery. Right popliteal artery occluded. Right anterior tibial artery occluded proximally. Occlusion of left anterior tibial artery. Left fibula and distal left tibial fracture. Diffuse subcutaneous edema about the LLE This is a 69 year old male who presented with LLE cellulitis and gangrene s/p recent bypass #LLE cellulitis - blood cultures negative - wound culture growing E coli and Enterobacter. On IV ceftriaxone. Dr. Garcia is following - appreciate wound care recommendations - PT recommending home with home health #Hypokalemia - potassium 3.2, will replace. Lasix held #Severe peripheral vascular disease s/p left common femoral endarterectomy, left popliteal artery endarterectomy, left common femoral artery to popliteal artery at knee with saphenous vein profundoplasty - patient POD 4 from above procedure - also has occlusion of right sided vessels as well, but denies pain currently #Afib with RVR - on amiodarone 400 mg po bid for one week, then 400 mg daily - not on anticoagulation, patient is known to be noncompliant #Lactic acidosis #Elevated troponin - asymptomatic currently. last troponin was 9.3, lactate > 3. Will repeat in am #Systolic heart failure - refused life vest - continue aspirin, plavix, amlodipine, coreg #Abdominal aortic aneurysm with mural thrombus - vascular follow up - 4 cm #Anemia - stable, Hb 9. Disposition: pending wound care re-evaluation. Possibly d/c tomorrow if patient has ride
[2020-03-31] MEDS: Atorvastatin Calcium 40 MG TAB PO SCH (21:43)
[2020-04-01] MEDS: HYDROcodone/Acetaminophen 5/325 mg Tablet PO PRN ×3 (03:37→13:30)
[2020-04-01 04:43] LABS: Hemoglobin 10.1 g/dL (14.0-18.0); Mean Corpuscular HGB CONC 32.8 g/dL (32.0-36.0); Mean Corpuscular Hemoglobin 30.7 pg (27.0-31.0); Mean Corpuscular Volume 93.8 fL (78.0-98.0); Mean Platelet Volume 7.8 fL (7.4-10.4); Platelet Count 242 thou/uL (130-400); RBC Distribution Width 12.7 % (11.5-14.5); Red Blood Cell (RBC) Count 3.29 mill/uL (4.70-6.10); White Blood Cell (WBC) Count 7.7 thou/uL (4.8-10.8)
[2020-04-01 04:59] LABS: Lactic Acid 1.6 mmol/L (0.5-2.2)
[2020-04-01 05:04] LABS: Anion Gap 12 mmol/L (10-20); BUN (Urea Nitrogen) 10 mg/dL (8.4-25.7); Calc. Creatinine Clearance 87 mL/min (70-130); Calcium 8.6 mg/dL (7.8-10.44); Carbon Dioxide 26 mmol/L (23-31); Chloride 102 mmol/L (98-107); Estimated GFR-MDRD 79; Glucose 138 mg/dL (80-115); Potassium 3.4 mmol/L (3.5-5.1); Sodium 137 mmol/L (136-145)
[2020-04-01 05:07] LABS: CKMB 3.1 ng/mL (0-6.6)
[2020-04-01 05:08] LABS: Critical Call Chem Troponin I RESULT DECREASING
[2020-04-01] MEDS: cefTRIAXone\\ROCEPHIN 1 GM in Sodium Chloride 0.9% 100 ML IVPB SCH (08:08)
[2020-04-01] MEDS: Furosemide 40 MG TAB PO SCH (08:08)
[2020-04-01] MEDS: Carvedilol 3.125 MG TAB PO SCH (08:09)
[2020-04-01] MEDS: Clopidogrel Bisulfate 75 MG TAB PO SCH (08:09)
[2020-04-01] MEDS: Gabapentin 300 MG CAP PO SCH (08:09)
[2020-04-01] MEDS: Famotidine 20 MG TAB PO SCH (08:09)
[2020-04-01] MEDS: Amiodarone 200 MG TAB PO SCH (08:09)
[2020-04-01] MEDS: Aspirin 81 mg Enteric Coated Tablet PO SCH (08:09)
[2020-04-01] MEDS: Enoxaparin Sodium 40 MG/0.4 ML SYRINGE SC SCH (08:09)
[2020-04-01] MEDS: Tamsulosin HCl 0.4 MG CAP PO SCH (08:09)
[2020-04-01] MEDS ORDERED: Potassium Chloride 20 MEQ TAB PO SCH ×2 (09:15)
[2020-04-01 15:10] VITALS: BP 139/77; TEMP 98.4
[2020-04-02] MEDS ORDERED: Potassium Chloride 20 MEQ TAB PO SCH (08:00)
--- NOTE | 2020-04-02 09:08 | DIS ---
DATE OF ADMISSION: 03/22/2020 DATE OF DISCHARGE: 04/01/2020 DISCHARGE DIAGNOSES: 1. Left lower extremity cellulitis secondary to Escherichia coli and Enterobacter infection. 2. Hypokalemia. 3. Severe peripheral vascular disease, status post left common femoral endarterectomy, left popliteal endarterectomy, left common femoral artery to popliteal artery at the knee joint. 4. Atrial fibrillation with rapid ventricular response. 5. Lactic acidosis/elevated troponin. 6. Systolic heart failure. 7. Abdominal aortic aneurysm with mural thrombus. 8. Anemia. CONSULTATIONS: Vascular Surgery with Nicolas Herrera MD and Cardiology with Salo Haji MD PROCEDURES: Left common femoral endarterectomy, left popliteal artery endarterectomy, left common femoral artery to popliteal artery at the knee joint with 8 mm Roland-Shyam Propaten graft and saphenous vein patch profundoplasty on 11/2019. BRIEF HISTORY OF PRESENT ILLNESS: This is a 69-year-old male with a past medical history of systolic heart failure and peripheral vascular disease, who presented to the emergency room with cellulitis. The patient reported that he had an ulcer or blisters on his legs that had popped up two weeks prior. He initially thought it was shingles and noticed that his legs were more and more swollen. He went to see his physician dental assistant medical assistant. He noted that there was a huge puddle of blood on the floor. His physician dental assistant medical assistant has sent him to the emergency room. He did report that he had a nonhealing ulcer on his ankle, which he had had since October after a screw had popped out of that area. He was also noted to have possible gangrene and was admitted for further evaluation. HOSPITAL COURSE: Left lower extremity cellulitis: The patient has had wound cultures done on his left leg, which grew E. coli and Enterobacter. The patient received IV ceftriaxone for 7 days. His erythema and swelling significantly improved. On the day prior to discharge, he was noted to have some pus coming out of his ankle. There was concern about whether this was a bone infection given that this was the same area a where screw came out of his ankle previously. I have discussed with Dr. Cuello, who states that there is no need for further imaging to evaluate for osteomyelitis. Dr. Garcia also agreed that the patient does not need any other antibiotics. The patient will be discharged and follow up with Dr. Cuello in 2 weeks. If this area appears to be worsening, further evaluation for osteomyelitis or re- initiation of antibiotics may be considered at that time. Atrial fibrillation with RVR: The patient went into atrial fibrillation with RVR during his admission here. He was started on amiodarone 400 mg twice daily. He was also started on Coreg while in the hospital. He should take 400 mg twice daily for an additional 11 days to complete a two-week course. He should then decrease it to 200 mg twice daily for 2 weeks, and then 200 mg daily after that. He should follow up with Dr. Sammy Stephen or Dr. Salo Haji in 1 to 2 weeks. Severe peripheral vascular disease: The patient was noted to have gangrene in his left lower extremity. He had a CTA on admission, which showed occlusion of his bilateral superficial femoral arteries, occlusion of the left anterior tibial artery. He underwent left common femoral endarterectomy, left popliteal endarterectomy, and left common femoral artery to popliteal artery with saphenous vein profundoplasty on 03/27. The patient reports that he is finally able to sleep with his left leg on the bed, which he was unable to do before. He is going to follow up with Dr. Cuello/Dr. Herrera in 2 weeks time. Hypokalemia: The patient was receiving Lasix while he was in the hospital for leg swelling. His potassium was 3.4 on the day of discharge. He will be discharged with potassium supplement for week. He should have a repeat BMP in a week to repeat his potassium level. Lactic acidosis/elevated troponin: This is likely type 2 NSTEMI secondary to atrial fibrillation and his peripheral vascular disease. The patient denied any chest pain. He will follow up with Cardiology as an outpatient. His repeat lactate came down to 1.9 and troponin came down to 2.3 at the time of discharge. Systolic heart failure: The patient was noted to have an EF of 30% during a prior admission. He refused a LifeVest at that time and continues to refuse a LifeVest. He will be discharged with aspirin, Plavix, and amlodipine and advised to continue his Coreg. Abdominal aortic aneurysm with mural thrombus: This is incidentally noted on a CT of his abdomen. His aneurysm was 4 cm in size. He should follow up with Vascular Surgery as an outpatient for serial ultrasound/CT scans. Left tib-fib fracture: This was noted incidentally on the CTA. The patient reports that this was repaired in October of 2019 early this year. DISCHARGE PHYSICAL EXAMINATION: VITAL SIGNS: Temperature 98.4, heart rate 84, respiratory rate 16, O2 saturation 95% on room air, and blood pressure 139/77. GENERAL: The patient is alert, awake, and oriented x3. CVS: Regular rate and rhythm with no murmurs, rubs, or gallops. LUNGS: Clear to auscultation bilaterally. ABDOMEN: Positive bowel sounds. Soft, nontender, and nondistended. EXTREMITIES: The patient noted to have a mild ulcer at the left ankle. It is nontender to palpation. He has some dry skin on his left tibial area with mild excoriations. There is no significant swelling, warmth, or tenderness. PERTINENT LABORATORY DATA: CBC 04/01: Hemoglobin 10.1 and hematocrit 30.9. BMP 04/01: Potassium is 3.4 and glucose 138. Lactate 03/31: 1.6. Troponin I: 9.308 on 03/29, which improved to 2.3 on 04/01. CK-MB 03/29: 56.4. CK-MB 04/01: 3.1. LFTs 03/22: AST 18, ALT 17, and alkaline phosphatase 99. UA 03/28: Shows 75 leukocyte esterase, 4 to 6 white blood cells. Urine culture 03/28: Shows no growth. Blood culture 03/22: Negative. Bacterial culture of the left ankle: Shows E. coli enterobacter cloacae sensitive to ceftriaxone, ceftazidime, gentamicin, Levaquin, meropenem, Zosyn, tobramycin , and amikacin. IMAGING: Tib-fib x-ray 03/22: Shows fracture status post ORIF. Diffuse soft tissue swelling suggesting cellulitis with skin ulceration adjacent to the medial malleolus. Lower extremity ultrasound 03/22/2020: Shows very markedly abnormal decreased velocities including superficial femoral artery, popliteal artery, posterior tibial artery, and dorsal pedis artery. CTA 03/23/2020: Shows abdominal aortic aneurysm 4 cm with mural thrombus. Occlusion of bilateral superficial femoral arteries, right internal iliac artery with severe narrowing at the origin of the left internal iliac artery. Right popliteal artery is occluded. Right anterior tibial artery is occluded proximally. There is occlusion of the left anterior tibial artery. There is a left fibula and distal left tibial fracture. There is diffuse subcutaneous edema about the left lower extremity. Chest x-ray 03/27: Shows no acute process. Chest x-ray 03/28: Shows no acute process. DISCHARGE CONDITION: Stable. ACTIVITY: As tolerated. DIET: Heart healthy diet with 2 L fluid restriction. DISCHARGE MEDICATIONS: 1. Amiodarone 400 mg p.o. b.i.d. for an additional 11 days, then 200 mg twice daily for 2 weeks, and then 200 mg daily. 2. Lasix 40 mg daily p.r.n. for edema. 3. Potassium 20 mEq daily, quantity 7. All other home medications were resumed. DISCHARGE INSTRUCTIONS: The patient should follow up with his PCP in a week. He should follow up with wound care. He should follow up with Dr. Cuello in 2 weeks and consider following up with Dr. Haji or Dr. Stephen from Cardiology with regard to his atrial fibrillation. He should get a repeat BMP in 1 week to check his potassium levels. Job ID: [id number] [id number]
== END 2020-04-01 16:06 | disposition home or self-care (01) | DRG 252 ==
LOC: ERS 17:31 → T4-B 19:22 → CCU 03-27 13:49 → ONC 03-28 12:31 → 2NO 03-28 21:03
PROVIDERS: ADMIT Internal Medicine; ATTEND Internal Medicine
PROC: B4201ZZ Computerized Tomography (CT Scan) of Abdominal Aorta using Low Osmolar Contrast (ICD-10-PCS; 2020-03-26)
PROC: B42H1ZZ Computerized Tomography (CT Scan) of Bilateral Lower Extremity Arteries using Low Osmolar Contrast (ICD-10-PCS; 2020-03-26)
PROC: 04CL0ZZ Extirpation of Matter from Left Femoral Artery, Open Approach (ICD-10-PCS; principal; 2020-03-27)
PROC: 04CN0ZZ Extirpation of Matter from Left Popliteal Artery, Open Approach (ICD-10-PCS; 2020-03-27)
PROC: 06U Lower Veins, Supplement (ICD-10-PCS; 2020-03-27)
DX: I70.262 Atherosclerosis of native arteries of extremities with gangrene, left leg (principal); I21.A1 Myocardial infarction type 2; I50.22 Chronic systolic (congestive) heart failure; L03.116 Cellulitis of left lower limb; L03.115 Cellulitis of right lower limb; Z16.11 Resistance to penicillins; Z16.29 Resistance to other single specified antibiotic; I47.2 Ventricular tachycardia; E87.2 Acidosis; L97.329 Non-pressure chronic ulcer of left ankle with unspecified severity; Z66 Do not resuscitate; I11.0 Hypertensive heart disease with heart failure; E78.5 Hyperlipidemia, unspecified; I25.5 Ischemic cardiomyopathy; B96.20 Unspecified Escherichia coli [E. coli] as the cause of diseases classified elsewhere; I25.10 Atherosclerotic heart disease of native coronary artery without angina pectoris; Z86.73 Personal history of transient ischemic attack (TIA), and cerebral infarction without residual deficits; Z95.1 Presence of aortocoronary bypass graft; Z87.891 Personal history of nicotine dependence; Z79.82 Long term (current) use of aspirin; Z79.01 Long term (current) use of anticoagulants; Z79.899 Other long term (current) drug therapy; I48.91 Unspecified atrial fibrillation; E87.6 Hypokalemia
CPT/HCPCS: 36415; 36416; 36430; 71045; 75625; 75635; 75822; 80048; 80053; 80202; 81001; 82553; 83605; 83735; 84484; 85025; 85027; 85652; 86140; 86850; 86900; 86901; 87040; 87070; 87077; 87086; 87186; 87205; 93005; 93010; 93923; 96365; 96375; 99152; 99153; C1725; C1769; J0282; J0696; J1100; J1642; J1644; J1650; J1885; J1940; J2001; J2250; J2270; J2405; J2543; J2704; J2720; J3010; J3370; J3490; J7050; J7070; Q9967

== ENCOUNTER 2022-02-28 14:16 | Inpatient (IN) | payer MEDICARE ==
[2022-02-28 15:43] LABS: #Eosinphils 0.1 thou/uL (0.0-0.7); #Lymphocytes 1.7 thou/uL (1.20-3.40); #Monocytes 0.8 thou/uL (0.11-0.59); #Neutrophils 7.5 thou/uL (1.40-6.50); %Basophils 0.1 % (0.0-1.0); %Eosinophils 0.6 % (0.0-10.0); %Lymphocytes 16.8 % (21.0-51.0); %Monocytes 8.2 % (0.0-10.0); %Neutrophils 74.3 % (42.0-75.0); Hemoglobin 12.8 g/dL (14.0-18.0); Mean Corpuscular HGB CONC 31.5 g/dL (32.0-36.0); Mean Corpuscular Hemoglobin 27.5 pg (27.0-31.0); Mean Corpuscular Volume 87.1 fL (78.0-98.0); Mean Platelet Volume 7.9 fL (7.4-10.4); Platelet Count 382 thou/uL (130-400); RBC Distribution Width 14.6 % (11.5-14.5); Red Blood Cell (RBC) Count 4.65 mill/uL (4.70-6.10); White Blood Cell (WBC) Count 10.1 thou/uL (4.8-10.8)
[2022-02-28] MEDS ORDERED: Vancomycin 1 GM in Premix Bag 1 BAG IVPB SCH (16:00)
[2022-02-28 16:18] LABS: ALT (SGPT) 16 U/L (8-55); AST (SGOT) 23 U/L (5-34); Albumin 3.7 g/dL (3.4-4.8); Alkaline Phosphatase 95 U/L (40-110); Anion Gap 15 mmol/L (10-20); BUN (Urea Nitrogen) 24 mg/dL (8.4-25.7); Bilirubin, Total 0.4 mg/dL (0.2-1.2); Calc. Creatinine Clearance 0 mL/min (70-130); Calcium 9.4 mg/dL (7.8-10.44); Carbon Dioxide 27 mmol/L (23-31); Chloride 97 mmol/L (98-107); Globulin 3.8 g/dL (2.4-3.5); Glucose 142 mg/dL (83-110); Potassium 3.3 mmol/L (3.5-5.1); Protein, Total 7.5 g/dL (5.8-8.1); Sodium 136 mmol/L (136-145)
[2022-02-28] MEDS ORDERED: Electrolyte Replacement Protocol FS PRN (17:15)
[2022-02-28] MEDS ORDERED: Electrolyte Replacement Protocol 1 EACH FS SCH (17:15)
[2022-02-28 17:34] LABS: Magnesium 1.9 mg/dL (1.6-2.6)
[2022-02-28] MEDS ORDERED: Ondansetron PF 4 MG/2 ML Vial ONE (17:49)
[2022-02-28] MEDS ORDERED: Morphine 4 MG/ML VIAL ONE (17:49)
[2022-02-28] MEDS ORDERED: Bisacodyl 10 MG SUPP PR PRN (18:28)
[2022-02-28] MEDS ORDERED: Senokot S 8.6-50 MG TAB PO PRN (18:28)
[2022-02-28] MEDS ORDERED: Bisacodyl 5 MG TAB PO PRN (18:28)
[2022-02-28] MEDS ORDERED: Acetaminophen 325 MG TAB PO PRN (18:28)
[2022-02-28] MEDS ORDERED: Acetaminophen 650 MG Suppository PR PRN (18:28)
[2022-02-28] MEDS ORDERED: Pharmacy to Dose : VANC/ABX'S IVPB PRN (18:41)
[2022-02-28 18:51] LABS: Hemoglobin A1c 5.3 % (4.0-6.0)
[2022-02-28] MEDS ORDERED: Potassium Chloride 20 MEQ TAB PO SCH (19:00)
[2022-02-28] MEDS ORDERED: Magnesium 2 GM/50 ML(in water) 2 GM in Premix Bag 1 BAG IVPB SCH (19:00)
[2022-02-28] MEDS: Morphine 2 MG/ML VIAL SLOW IVP PRN ×2 (20:02→23:59)
[2022-02-28] MEDS: Atorvastatin Calcium 40 MG TAB PO SCH (20:39)
[2022-02-28] MEDS: HYDROcodone/Acetaminophen 5/325 mg Tablet PO PRN (20:46)
[2022-02-28] MEDS: Cefepime 2 GM in Sodium Chloride 0.9% 100 ML IVPB SCH (22:58)
[2022-03-01] MEDS: HYDROcodone/Acetaminophen 5/325 mg Tablet PO PRN ×5 (02:07→21:50)
[2022-03-01] MEDS: Vancomycin 1 GM in Premix Bag 1 BAG IVPB SCH ×2 (04:19→20:41)
[2022-03-01] MEDS: Morphine 2 MG/ML VIAL SLOW IVP PRN ×4 (04:22→20:42)
[2022-03-01 06:53] LABS: #Eosinphils 0.2 thou/uL (0.0-0.7); #Lymphocytes 1.9 thou/uL (1.20-3.40); #Neutrophils 6.4 thou/uL (1.40-6.50); %Basophils 0.3 % (0.0-1.0); %Eosinophils 2.3 % (0.0-10.0); %Lymphocytes 19.5 % (21.0-51.0); %Monocytes 10.6 % (0.0-10.0); %Neutrophils 67.2 % (42.0-75.0); Hemoglobin 12.5 g/dL (14.0-18.0); Mean Corpuscular HGB CONC 32.2 g/dL (32.0-36.0); Mean Corpuscular Hemoglobin 28.1 pg (27.0-31.0); Mean Corpuscular Volume 87.1 fL (78.0-98.0); Mean Platelet Volume 7.6 fL (7.4-10.4); Platelet Count 393 thou/uL (130-400); RBC Distribution Width 14.5 % (11.5-14.5); Red Blood Cell (RBC) Count 4.45 mill/uL (4.70-6.10); White Blood Cell (WBC) Count 9.6 thou/uL (4.8-10.8)
[2022-03-01 07:13] LABS: Anion Gap 15 mmol/L (10-20); BUN (Urea Nitrogen) 19 mg/dL (8.4-25.7); Calc. Creatinine Clearance 67 mL/min (70-130); Calcium 9.4 mg/dL (7.8-10.44); Carbon Dioxide 28 mmol/L (23-31); Chloride 98 mmol/L (98-107); Glucose 112 mg/dL (83-110); Potassium 3.6 mmol/L (3.5-5.1); Sodium 137 mmol/L (136-145)
[2022-03-01] MEDS ORDERED: Potassium Chloride 20 MEQ TAB PO SCH (08:00)
[2022-03-01] MEDS: Losartan 25 MG TAB PO SCH (08:35)
[2022-03-01] MEDS: Aspirin 81 mg Enteric Coated Tablet PO SCH (08:35)
[2022-03-01] MEDS: Clopidogrel Bisulfate 75 MG TAB PO SCH (08:35)
[2022-03-01] MEDS: Furosemide 40 MG TAB PO SCH (08:36)
[2022-03-01] MEDS: Tamsulosin HCl 0.4 MG CAP PO SCH (08:36)
[2022-03-01] MEDS: Carvedilol 6.25 MG TAB PO SCH ×2 (08:36→16:59)
[2022-03-01] MEDS: Gabapentin 300 MG CAP PO SCH (08:36)
[2022-03-01] MEDS: Methimazole 5 MG TAB PO SCH (08:37)
[2022-03-01] MEDS: Enoxaparin Sodium 40 MG/0.4 ML SYRINGE SC SCH (08:37)
[2022-03-01] MEDS: Potassium Chloride 20 MEQ TAB PO SCH (08:37)
[2022-03-01] MEDS: Cefepime 2 GM in Sodium Chloride 0.9% 100 ML IVPB SCH ×2 (11:09→23:55)
[2022-03-01 16:12] LABS: SARS-CoV-2 PCR by NAA Not Detected (NotDetected)
[2022-03-01] MEDS: Atorvastatin Calcium 40 MG TAB PO SCH (20:40)
[2022-03-02] MEDS: Morphine 2 MG/ML VIAL SLOW IVP PRN ×6 (00:12→19:48)
[2022-03-02] MEDS: HYDROcodone/Acetaminophen 5/325 mg Tablet PO PRN ×5 (01:56→21:24)
[2022-03-02] MEDS: Potassium Chloride 20 MEQ TAB PO SCH (08:20)
[2022-03-02] MEDS: Clopidogrel Bisulfate 75 MG TAB PO SCH (08:20)
[2022-03-02] MEDS: Tamsulosin HCl 0.4 MG CAP PO SCH (08:20)
[2022-03-02] MEDS: Aspirin 81 mg Enteric Coated Tablet PO SCH (08:21)
[2022-03-02] MEDS: Methimazole 5 MG TAB PO SCH (08:21)
[2022-03-02] MEDS: Enoxaparin Sodium 40 MG/0.4 ML SYRINGE SC SCH (08:21)
[2022-03-02] MEDS: Carvedilol 6.25 MG TAB PO SCH ×2 (08:21→15:35)
[2022-03-02] MEDS: Gabapentin 300 MG CAP PO SCH (08:21)
[2022-03-02] MEDS: Furosemide 40 MG TAB PO SCH (08:21)
[2022-03-02] MEDS: Vancomycin 1 GM in Premix Bag 1 BAG IVPB SCH ×2 (08:22→20:03)
[2022-03-02] MEDS: Losartan 25 MG TAB PO SCH (08:22)
[2022-03-02 08:53] LABS: Vancomycin, Trough 15.3 ug/mL
[2022-03-02] MEDS: Cefepime 2 GM in Sodium Chloride 0.9% 100 ML IVPB SCH (11:42)
[2022-03-02] MEDS ORDERED: Meropenem 1 GM in Sodium Chloride 0.9% 100 ML IVPB SCH ×2 (15:00→22:00)
[2022-03-02] MEDS: Meropenem 1 GM in Sodium Chloride 0.9% 100 ML IVPB SCH ×2 (15:43→22:20)
[2022-03-02] MEDS: Atorvastatin Calcium 40 MG TAB PO SCH (20:03)
[2022-03-03] MEDS: Morphine 2 MG/ML VIAL SLOW IVP PRN ×5 (00:51→23:44)
[2022-03-03] MEDS: HYDROcodone/Acetaminophen 5/325 mg Tablet PO PRN ×4 (03:17→20:19)
[2022-03-03] MEDS: Meropenem 1 GM in Sodium Chloride 0.9% 100 ML IVPB SCH ×3 (06:01→22:04)
[2022-03-03] MEDS: Vancomycin 1 GM in Premix Bag 1 BAG IVPB SCH ×2 (08:13→20:20)
[2022-03-03] MEDS: Enoxaparin Sodium 40 MG/0.4 ML SYRINGE SC SCH (08:14)
[2022-03-03] MEDS: Losartan 25 MG TAB PO SCH (08:14)
[2022-03-03] MEDS: Furosemide 40 MG TAB PO SCH (08:14)
[2022-03-03] MEDS: Carvedilol 6.25 MG TAB PO SCH ×2 (08:14→16:41)
[2022-03-03] MEDS: Tamsulosin HCl 0.4 MG CAP PO SCH (08:14)
[2022-03-03] MEDS: Gabapentin 300 MG CAP PO SCH (08:14)
[2022-03-03] MEDS: Aspirin 81 mg Enteric Coated Tablet PO SCH (08:14)
[2022-03-03] MEDS: Methimazole 5 MG TAB PO SCH (08:14)
[2022-03-03] MEDS: Potassium Chloride 20 MEQ TAB PO SCH (08:14)
[2022-03-03] MEDS: Clopidogrel Bisulfate 75 MG TAB PO SCH (08:14)
[2022-03-03] MEDS ORDERED: Docusate 100 MG CAP PO PRN (11:19)
[2022-03-03] MEDS ORDERED: Polyethylene Glycol 3350 17 GM Packet PO SCH (11:30)
[2022-03-03] MEDS ORDERED: Docusate 100 MG CAP PO SCH (11:30)
[2022-03-03] MEDS: Atorvastatin Calcium 40 MG TAB PO SCH (20:19)
[2022-03-03] MEDS ORDERED: Lorazepam 0.5 MG TAB PO SCH (21:45)
[2022-03-04] MEDS: HYDROcodone/Acetaminophen 5/325 mg Tablet PO PRN ×3 (05:43→22:28)
[2022-03-04] MEDS: Meropenem 1 GM in Sodium Chloride 0.9% 100 ML IVPB SCH ×3 (06:08→22:29)
[2022-03-04 06:19] LABS: Hemoglobin 11.8 g/dL (14.0-18.0); Mean Corpuscular HGB CONC 32.5 g/dL (32.0-36.0); Mean Corpuscular Volume 86.2 fL (78.0-98.0); Mean Platelet Volume 7.6 fL (7.4-10.4); Platelet Count 317 thou/uL (130-400); RBC Distribution Width 14.3 % (11.5-14.5); Red Blood Cell (RBC) Count 4.21 mill/uL (4.70-6.10); White Blood Cell (WBC) Count 9.9 thou/uL (4.8-10.8)
[2022-03-04 06:42] LABS: Anion Gap 15 mmol/L (10-20); BUN (Urea Nitrogen) 13 mg/dL (8.4-25.7); Calc. Creatinine Clearance 88 mL/min (70-130); Calcium 9.1 mg/dL (7.8-10.44); Carbon Dioxide 25 mmol/L (23-31); Chloride 100 mmol/L (98-107); Glucose 91 mg/dL (83-110); Potassium 3.6 mmol/L (3.5-5.1); Sodium 136 mmol/L (136-145)
[2022-03-04] MEDS: Tamsulosin HCl 0.4 MG CAP PO SCH (08:14)
[2022-03-04] MEDS: Aspirin 81 mg Enteric Coated Tablet PO SCH ×2 (08:14→08:15)
[2022-03-04] MEDS: Vancomycin 1 GM in Premix Bag 1 BAG IVPB SCH ×2 (08:14→19:48)
[2022-03-04] MEDS: Enoxaparin Sodium 40 MG/0.4 ML SYRINGE SC SCH (08:14)
[2022-03-04] MEDS: Clopidogrel Bisulfate 75 MG TAB PO SCH (08:14)
[2022-03-04] MEDS: Potassium Chloride 20 MEQ TAB PO SCH (08:14)
[2022-03-04] MEDS: Gabapentin 300 MG CAP PO SCH (08:15)
[2022-03-04] MEDS: Morphine 2 MG/ML VIAL SLOW IVP PRN ×2 (08:15→19:47)
[2022-03-04] MEDS: Carvedilol 6.25 MG TAB PO SCH ×2 (08:15→17:01)
[2022-03-04] MEDS: Losartan 25 MG TAB PO SCH (08:15)
[2022-03-04] MEDS: Furosemide 40 MG TAB PO SCH (08:16)
[2022-03-04] MEDS: Methimazole 5 MG TAB PO SCH (08:17)
[2022-03-04] MEDS: Atorvastatin Calcium 40 MG TAB PO SCH (19:48)
[2022-03-05] MEDS: Morphine 2 MG/ML VIAL SLOW IVP PRN ×4 (00:39→21:38)
[2022-03-05] MEDS: HYDROcodone/Acetaminophen 5/325 mg Tablet PO PRN ×3 (05:14→18:39)
[2022-03-05] MEDS: Meropenem 1 GM in Sodium Chloride 0.9% 100 ML IVPB SCH ×3 (06:29→23:11)
[2022-03-05] MEDS: Enoxaparin Sodium 40 MG/0.4 ML SYRINGE SC SCH (08:08)
[2022-03-05] MEDS: Multivit, Therapeutic 1 TAB PO SCH (08:08)
[2022-03-05] MEDS: Potassium Chloride 20 MEQ TAB PO SCH (08:09)
[2022-03-05] MEDS: Furosemide 40 MG TAB PO SCH (08:09)
[2022-03-05] MEDS: Carvedilol 6.25 MG TAB PO SCH ×2 (08:09→17:35)
[2022-03-05] MEDS: Clopidogrel Bisulfate 75 MG TAB PO SCH (08:09)
[2022-03-05] MEDS: Tamsulosin HCl 0.4 MG CAP PO SCH (08:09)
[2022-03-05] MEDS: Aspirin 81 mg Enteric Coated Tablet PO SCH (08:09)
[2022-03-05] MEDS: Losartan 25 MG TAB PO SCH (08:09)
[2022-03-05] MEDS: Vancomycin 1 GM in Premix Bag 1 BAG IVPB SCH ×2 (08:10→20:51)
[2022-03-05] MEDS: Gabapentin 300 MG CAP PO SCH (08:11)
[2022-03-05] MEDS: Methimazole 5 MG TAB PO SCH (08:11)
[2022-03-05 08:50] LABS: Vancomycin, Trough 19.2 ug/mL
[2022-03-05] MEDS: Atorvastatin Calcium 40 MG TAB PO SCH (20:52)
[2022-03-06] MEDS: Morphine 2 MG/ML VIAL SLOW IVP PRN ×2 (02:34→06:30)
[2022-03-06] MEDS: HYDROcodone/Acetaminophen 5/325 mg Tablet PO PRN ×5 (04:18→20:55)
[2022-03-06] MEDS: Meropenem 1 GM in Sodium Chloride 0.9% 100 ML IVPB SCH ×3 (06:29→22:16)
[2022-03-06 07:22] LABS: #Eosinphils 0.1 thou/uL (0.0-0.7); #Lymphocytes 1.5 thou/uL (1.20-3.40); #Monocytes 0.8 thou/uL (0.11-0.59); #Neutrophils 6.6 thou/uL (1.40-6.50); %Basophils 0.4 % (0.0-1.0); %Eosinophils 1.2 % (0.0-10.0); %Monocytes 9.2 % (0.0-10.0); %Neutrophils 72.2 % (42.0-75.0); Hemoglobin 11.5 g/dL (14.0-18.0); Mean Corpuscular HGB CONC 32.5 g/dL (32.0-36.0); Mean Corpuscular Hemoglobin 28.1 pg (27.0-31.0); Mean Corpuscular Volume 86.3 fL (78.0-98.0); Mean Platelet Volume 7.7 fL (7.4-10.4); Platelet Count 294 thou/uL (130-400); RBC Distribution Width 14.3 % (11.5-14.5); Red Blood Cell (RBC) Count 4.09 mill/uL (4.70-6.10); White Blood Cell (WBC) Count 9.1 thou/uL (4.8-10.8)
[2022-03-06 07:37] LABS: Anion Gap 13 mmol/L (10-20); BUN (Urea Nitrogen) 11 mg/dL (8.4-25.7); Calc. Creatinine Clearance 89 mL/min (70-130); Carbon Dioxide 27 mmol/L (23-31); Chloride 101 mmol/L (98-107); Glucose 98 mg/dL (83-110); Potassium 3.6 mmol/L (3.5-5.1); Sodium 137 mmol/L (136-145)
[2022-03-06] MEDS: Aspirin 81 mg Enteric Coated Tablet PO SCH (08:57)
[2022-03-06] MEDS: Furosemide 40 MG TAB PO SCH (08:57)
[2022-03-06] MEDS: Losartan 25 MG TAB PO SCH (08:57)
[2022-03-06] MEDS: Carvedilol 6.25 MG TAB PO SCH ×2 (08:58→17:09)
[2022-03-06] MEDS: Clopidogrel Bisulfate 75 MG TAB PO SCH (08:58)
[2022-03-06] MEDS: Enoxaparin Sodium 40 MG/0.4 ML SYRINGE SC SCH (08:58)
[2022-03-06] MEDS: Multivit, Therapeutic 1 TAB PO SCH (08:58)
[2022-03-06] MEDS: Gabapentin 300 MG CAP PO SCH (08:58)
[2022-03-06] MEDS: Tamsulosin HCl 0.4 MG CAP PO SCH (08:58)
[2022-03-06] MEDS: Potassium Chloride 20 MEQ TAB PO SCH (08:58)
[2022-03-06] MEDS: Vancomycin 1 GM in Premix Bag 1 BAG IVPB SCH ×2 (08:59→20:53)
[2022-03-06] MEDS: Methimazole 5 MG TAB PO SCH (09:00)
[2022-03-06] MEDS: Atorvastatin Calcium 40 MG TAB PO SCH (20:54)
[2022-03-07] MEDS: HYDROcodone/Acetaminophen 5/325 mg Tablet PO PRN ×4 (03:04→20:28)
[2022-03-07] MEDS: Meropenem 1 GM in Sodium Chloride 0.9% 100 ML IVPB SCH ×2 (06:49→14:31)
[2022-03-07] MEDS: Gabapentin 300 MG CAP PO SCH (08:13)
[2022-03-07] MEDS: Potassium Chloride 20 MEQ TAB PO SCH (08:13)
[2022-03-07] MEDS: Furosemide 40 MG TAB PO SCH (08:13)
[2022-03-07] MEDS: Enoxaparin Sodium 40 MG/0.4 ML SYRINGE SC SCH (08:13)
[2022-03-07] MEDS: Clopidogrel Bisulfate 75 MG TAB PO SCH (08:13)
[2022-03-07] MEDS: Losartan 25 MG TAB PO SCH (08:13)
[2022-03-07] MEDS: Tamsulosin HCl 0.4 MG CAP PO SCH (08:13)
[2022-03-07] MEDS: Methimazole 5 MG TAB PO SCH (08:13)
[2022-03-07] MEDS: Multivit, Therapeutic 1 TAB PO SCH (08:14)
[2022-03-07] MEDS: Carvedilol 6.25 MG TAB PO SCH ×2 (08:14→17:05)
[2022-03-07] MEDS: Aspirin 81 mg Enteric Coated Tablet PO SCH (08:14)
[2022-03-07] MEDS: Vancomycin 1 GM in Premix Bag 1 BAG IVPB SCH ×2 (08:17→20:30)
[2022-03-07] MEDS: Morphine 2 MG/ML VIAL SLOW IVP PRN (10:09)
[2022-03-07] MEDS: Atorvastatin Calcium 40 MG TAB PO SCH (20:28)
[2022-03-08 00:11] LABS: SARS-CoV-2 PCR by NAA Not Detected (NotDetected)
[2022-03-08] MEDS: HYDROcodone/Acetaminophen 5/325 mg Tablet PO PRN ×5 (00:41→23:22)
[2022-03-08] MEDS: Meropenem 1 GM in Sodium Chloride 0.9% 100 ML IVPB SCH ×4 (00:42→23:23)
[2022-03-08] MEDS: Vancomycin 1 GM in Premix Bag 1 BAG IVPB SCH (08:13)
[2022-03-08] MEDS: Clopidogrel Bisulfate 75 MG TAB PO SCH (08:14)
[2022-03-08] MEDS: Aspirin 81 mg Enteric Coated Tablet PO SCH (08:14)
[2022-03-08] MEDS: Enoxaparin Sodium 40 MG/0.4 ML SYRINGE SC SCH (08:14)
[2022-03-08] MEDS: Methimazole 5 MG TAB PO SCH (08:14)
[2022-03-08] MEDS: Tamsulosin HCl 0.4 MG CAP PO SCH (08:14)
[2022-03-08] MEDS: Carvedilol 6.25 MG TAB PO SCH ×2 (08:14→16:52)
[2022-03-08] MEDS: Losartan 25 MG TAB PO SCH (08:15)
[2022-03-08] MEDS: Furosemide 40 MG TAB PO SCH (08:15)
[2022-03-08] MEDS: Multivit, Therapeutic 1 TAB PO SCH (08:15)
[2022-03-08] MEDS: Gabapentin 300 MG CAP PO SCH (08:15)
[2022-03-08] MEDS: Potassium Chloride 20 MEQ TAB PO SCH (08:15)
[2022-03-08] MEDS: Morphine 2 MG/ML VIAL SLOW IVP PRN ×3 (08:17→21:07)
[2022-03-08 08:37] LABS: Vancomycin, Trough 23.3 ug/mL
[2022-03-08] MEDS: Atorvastatin Calcium 40 MG TAB PO SCH (21:08)
[2022-03-08] MEDS: Vancomycin HCl 750 MG in Sodium Chloride 0.9% 250 ML 250 ML IVPB SCH (21:19)
[2022-03-09] MEDS: Morphine 2 MG/ML VIAL SLOW IVP PRN ×4 (01:28→21:03)
[2022-03-09] MEDS: HYDROcodone/Acetaminophen 5/325 mg Tablet PO PRN ×5 (04:38→23:24)
[2022-03-09] MEDS: Meropenem 1 GM in Sodium Chloride 0.9% 100 ML IVPB SCH ×3 (06:24→23:25)
[2022-03-09 07:12] LABS: Calc. Creatinine Clearance 90 mL/min (70-130)
[2022-03-09] MEDS: Clopidogrel Bisulfate 75 MG TAB PO SCH (08:02)
[2022-03-09] MEDS: Gabapentin 300 MG CAP PO SCH (08:02)
[2022-03-09] MEDS: Multivit, Therapeutic 1 TAB PO SCH (08:02)
[2022-03-09] MEDS: Tamsulosin HCl 0.4 MG CAP PO SCH (08:02)
[2022-03-09] MEDS: Enoxaparin Sodium 40 MG/0.4 ML SYRINGE SC SCH (08:02)
[2022-03-09] MEDS: Carvedilol 6.25 MG TAB PO SCH ×2 (08:02→16:37)
[2022-03-09] MEDS: Aspirin 81 mg Enteric Coated Tablet PO SCH (08:02)
[2022-03-09] MEDS: Methimazole 5 MG TAB PO SCH (08:02)
[2022-03-09] MEDS: Potassium Chloride 20 MEQ TAB PO SCH (08:02)
[2022-03-09] MEDS: Furosemide 40 MG TAB PO SCH (08:03)
[2022-03-09] MEDS: Losartan 25 MG TAB PO SCH (08:03)
[2022-03-09] MEDS: Vancomycin HCl 750 MG in Sodium Chloride 0.9% 250 ML 250 ML IVPB SCH ×2 (09:10→21:48)
[2022-03-09] MEDS: Atorvastatin Calcium 40 MG TAB PO SCH (21:03)
[2022-03-10] MEDS: Morphine 2 MG/ML VIAL SLOW IVP PRN ×4 (02:17→22:08)
[2022-03-10] MEDS: Meropenem 1 GM in Sodium Chloride 0.9% 100 ML IVPB SCH ×3 (06:30→22:09)
[2022-03-10] MEDS: Tamsulosin HCl 0.4 MG CAP PO SCH (08:18)
[2022-03-10] MEDS: Methimazole 5 MG TAB PO SCH (08:18)
[2022-03-10] MEDS: Aspirin 81 mg Enteric Coated Tablet PO SCH (08:18)
[2022-03-10] MEDS: Potassium Chloride 20 MEQ TAB PO SCH (08:18)
[2022-03-10] MEDS: Furosemide 40 MG TAB PO SCH (08:18)
[2022-03-10] MEDS: Gabapentin 300 MG CAP PO SCH (08:18)
[2022-03-10] MEDS: Carvedilol 6.25 MG TAB PO SCH ×2 (08:18→17:13)
[2022-03-10] MEDS: Losartan 25 MG TAB PO SCH (08:19)
[2022-03-10] MEDS: Clopidogrel Bisulfate 75 MG TAB PO SCH (08:19)
[2022-03-10] MEDS: Enoxaparin Sodium 40 MG/0.4 ML SYRINGE SC SCH (08:19)
[2022-03-10] MEDS: Vancomycin HCl 750 MG in Sodium Chloride 0.9% 250 ML 250 ML IVPB SCH ×2 (08:19→20:05)
[2022-03-10] MEDS: Multivit, Therapeutic 1 TAB PO SCH (08:19)
[2022-03-10 08:43] LABS: #Eosinphils 0.1 thou/uL (0.0-0.7); #Lymphocytes 1.6 thou/uL (1.20-3.40); #Monocytes 0.8 thou/uL (0.11-0.59); #Neutrophils 6.9 thou/uL (1.40-6.50); %Basophils 0.3 % (0.0-1.0); %Eosinophils 1.4 % (0.0-10.0); %Lymphocytes 16.7 % (21.0-51.0); %Monocytes 8.4 % (0.0-10.0); %Neutrophils 73.2 % (42.0-75.0); Hemoglobin 11.9 g/dL (14.0-18.0); Mean Corpuscular HGB CONC 32.3 g/dL (32.0-36.0); Mean Corpuscular Hemoglobin 28.2 pg (27.0-31.0); Mean Corpuscular Volume 87.3 fL (78.0-98.0); Mean Platelet Volume 8.2 fL (7.4-10.4); Platelet Count 295 thou/uL (130-400); RBC Distribution Width 14.3 % (11.5-14.5); Red Blood Cell (RBC) Count 4.23 mill/uL (4.70-6.10); White Blood Cell (WBC) Count 9.4 thou/uL (4.8-10.8)
[2022-03-10 09:01] LABS: Vancomycin, Trough 18.5 ug/mL
[2022-03-10 09:02] LABS: Anion Gap 15 mmol/L (10-20); BUN (Urea Nitrogen) 11 mg/dL (8.4-25.7); Calc. Creatinine Clearance 99 mL/min (70-130); Calcium 8.8 mg/dL (7.8-10.44); Carbon Dioxide 23 mmol/L (23-31); Chloride 102 mmol/L (98-107); Glucose 94 mg/dL (83-110); Potassium 3.7 mmol/L (3.5-5.1); Sodium 136 mmol/L (136-145)
[2022-03-10] MEDS: HYDROcodone/Acetaminophen 5/325 mg Tablet PO PRN (12:57)
[2022-03-10] MEDS: HYDROcodone/Acetaminophen 10/325 mg Tablet PO PRN ×2 (17:13→20:04)
[2022-03-10] MEDS: Atorvastatin Calcium 40 MG TAB PO SCH (20:05)
[2022-03-11] MEDS: HYDROcodone/Acetaminophen 10/325 mg Tablet PO PRN ×2 (00:28→05:35)
[2022-03-11] MEDS: Meropenem 1 GM in Sodium Chloride 0.9% 100 ML IVPB SCH ×3 (05:36→23:21)
[2022-03-11 07:58] LABS: Calc. Creatinine Clearance 92 mL/min (70-130)
[2022-03-11] MEDS: Carvedilol 6.25 MG TAB PO SCH ×2 (08:00→15:47)
[2022-03-11] MEDS: Aspirin 81 mg Enteric Coated Tablet PO SCH (08:27)
[2022-03-11] MEDS: Furosemide 40 MG TAB PO SCH (08:27)
[2022-03-11] MEDS: Clopidogrel Bisulfate 75 MG TAB PO SCH (08:27)
[2022-03-11] MEDS: Enoxaparin Sodium 40 MG/0.4 ML SYRINGE SC SCH (08:27)
[2022-03-11] MEDS: Gabapentin 300 MG CAP PO SCH (08:28)
[2022-03-11] MEDS: Losartan 25 MG TAB PO SCH (08:28)
[2022-03-11] MEDS: Methimazole 5 MG TAB PO SCH (08:28)
[2022-03-11] MEDS: Vancomycin HCl 750 MG in Sodium Chloride 0.9% 250 ML 250 ML IVPB SCH ×2 (08:28→20:01)
[2022-03-11] MEDS: Multivit, Therapeutic 1 TAB PO SCH (08:28)
[2022-03-11] MEDS: Potassium Chloride 20 MEQ TAB PO SCH (08:28)
[2022-03-11] MEDS: Tamsulosin HCl 0.4 MG CAP PO SCH (08:28)
[2022-03-11] MEDS ORDERED: Lidocaine 1% MPF 2 ML VIAL ONE (09:48)
[2022-03-11] MEDS ORDERED: Fentanyl 100 MCG/2 ML VIAL ONE (10:02)
[2022-03-11] MEDS ORDERED: Midazolam HCl 2 mg/2 ml Vial ONE (10:02)
[2022-03-11] MEDS ORDERED: Neomycin-Polymyxin 1 ML AMP ONE ×2 (10:11→10:25)
[2022-03-11] MEDS ORDERED: fentaNYL Citrate/PF 100 MCG/2 ML SYRINGE ONE (10:14)
[2022-03-11] MEDS ORDERED: Ketamine 50 MG/ML (10ML VIAL) ONE (10:14)
[2022-03-11] MEDS ORDERED: Phenylephrine 10 MG/ML VIAL ONE (10:16)
[2022-03-11] MEDS ORDERED: ePHEDrine Sulfate 50 MG/10 ML VIAL ONE (10:16)
[2022-03-11] MEDS ORDERED: Ondansetron PF 4 MG/2 ML Vial ONE (10:48)
[2022-03-11] MEDS ORDERED: ePHEDrine 50 MG/ML VIAL ONE (10:48)
[2022-03-11] MEDS ORDERED: Dexamethasone 20 MG/5 ML VIAL ONE (10:48)
[2022-03-11] MEDS ORDERED: Bupivacaine HCl 0.5%/Epinephrine 1:200,000/PF 30 ml Vial ONE (10:48)
[2022-03-11] MEDS ORDERED: Morphine Sulfate 2 MG/ML SYRINGE SLOW IVP PRN (12:23)
[2022-03-11] MEDS ORDERED: Ondansetron HCl/PF 4 MG/2 ML Vial IVP PRN (12:23)
[2022-03-11] MEDS ORDERED: HYDROmorphone 2 MG/ML VIAL SLOW IVP PRN (12:23)
[2022-03-11] MEDS ORDERED: Communication Order-Pharmacy FS SCH (12:30)
[2022-03-11] MEDS: Atorvastatin Calcium 40 MG TAB PO SCH (20:01)
[2022-03-11 20:04] LABS: Hemoglobin 11.6 g/dL (14.0-18.0)
[2022-03-11 20:22] LABS: Vancomycin, Trough 14.2 ug/mL
[2022-03-12 04:22] LABS: #Lymphocytes 1.5 thou/uL (1.20-3.40); #Monocytes 0.8 thou/uL (0.11-0.59); #Neutrophils 9.9 thou/uL (1.40-6.50); %Basophils 0.1 % (0.0-1.0); %Eosinophils 0.1 % (0.0-10.0); %Lymphocytes 11.9 % (21.0-51.0); %Monocytes 6.9 % (0.0-10.0); %Neutrophils 81.1 % (42.0-75.0); Hemoglobin 10.6 g/dL (14.0-18.0); Mean Corpuscular HGB CONC 31.7 g/dL (32.0-36.0); Mean Corpuscular Hemoglobin 27.3 pg (27.0-31.0); Mean Corpuscular Volume 86.2 fL (78.0-98.0); Platelet Count 313 thou/uL (130-400); RBC Distribution Width 14.2 % (11.5-14.5); Red Blood Cell (RBC) Count 3.87 mill/uL (4.70-6.10); White Blood Cell (WBC) Count 12.3 thou/uL (4.8-10.8)
[2022-03-12 04:56] LABS: ALT (SGPT) 14 U/L (8-55); AST (SGOT) 21 U/L (5-34); Albumin 2.9 g/dL (3.4-4.8); Alkaline Phosphatase 86 U/L (40-110); Anion Gap 15 mmol/L (10-20); BUN (Urea Nitrogen) 14 mg/dL (8.4-25.7); Bilirubin, Total 0.7 mg/dL (0.2-1.2); Calc. Creatinine Clearance 99 mL/min (70-130); Calcium 8.8 mg/dL (7.8-10.44); Carbon Dioxide 21 mmol/L (23-31); Chloride 105 mmol/L (98-107); Globulin 3.1 g/dL (2.4-3.5); Glucose 87 mg/dL (83-110); Potassium 4.1 mmol/L (3.5-5.1); Sodium 137 mmol/L (136-145)
[2022-03-12] MEDS: Meropenem 1 GM in Sodium Chloride 0.9% 100 ML IVPB SCH ×3 (06:18→23:21)
[2022-03-12] MEDS: Furosemide 40 MG TAB PO SCH (08:59)
[2022-03-12] MEDS: Tamsulosin HCl 0.4 MG CAP PO SCH (08:59)
[2022-03-12] MEDS: Gabapentin 300 MG CAP PO SCH (08:59)
[2022-03-12] MEDS: Multivit, Therapeutic 1 TAB PO SCH (08:59)
[2022-03-12] MEDS: Aspirin 81 mg Enteric Coated Tablet PO SCH (08:59)
[2022-03-12] MEDS: Carvedilol 6.25 MG TAB PO SCH ×2 (09:00→18:23)
[2022-03-12] MEDS: Methimazole 5 MG TAB PO SCH (11:31)
[2022-03-12] MEDS: HYDROcodone/Acetaminophen 10/325 mg Tablet PO PRN ×4 (11:31→21:09)
[2022-03-12] MEDS: Vancomycin HCl 750 MG in Sodium Chloride 0.9% 250 ML 250 ML IVPB SCH ×2 (11:32→21:10)
[2022-03-12] MEDS: Enoxaparin Sodium 40 MG/0.4 ML SYRINGE SC SCH (12:05)
[2022-03-12] MEDS: Clopidogrel Bisulfate 75 MG TAB PO SCH (12:05)
[2022-03-12] MEDS: Potassium Chloride 20 MEQ TAB PO SCH (12:35)
[2022-03-12] MEDS: Losartan 25 MG TAB PO SCH (12:35)
[2022-03-12] MEDS: Morphine 4 MG/ML VIAL SLOW IVP PRN ×2 (15:01→19:40)
[2022-03-12] MEDS: Atorvastatin Calcium 40 MG TAB PO SCH (21:10)
[2022-03-13] MEDS: Morphine 4 MG/ML VIAL SLOW IVP PRN ×3 (00:15→13:46)
[2022-03-13] MEDS: HYDROcodone/Acetaminophen 10/325 mg Tablet PO PRN ×5 (02:09→21:27)
[2022-03-13 04:37] LABS: Calc. Creatinine Clearance 85 mL/min (70-130)
[2022-03-13] MEDS: Meropenem 1 GM in Sodium Chloride 0.9% 100 ML IVPB SCH ×3 (07:50→23:20)
[2022-03-13] MEDS: Carvedilol 6.25 MG TAB PO SCH ×2 (07:51→16:38)
[2022-03-13] MEDS: Furosemide 40 MG TAB PO SCH (07:51)
[2022-03-13] MEDS: Clopidogrel Bisulfate 75 MG TAB PO SCH (07:51)
[2022-03-13] MEDS: Aspirin 81 mg Enteric Coated Tablet PO SCH (07:51)
[2022-03-13] MEDS: Tamsulosin HCl 0.4 MG CAP PO SCH (07:51)
[2022-03-13] MEDS: Potassium Chloride 20 MEQ TAB PO SCH (07:51)
[2022-03-13] MEDS: Multivit, Therapeutic 1 TAB PO SCH (07:51)
[2022-03-13] MEDS: Gabapentin 300 MG CAP PO SCH (07:52)
[2022-03-13] MEDS: Losartan 25 MG TAB PO SCH (07:52)
[2022-03-13] MEDS: Methimazole 5 MG TAB PO SCH (07:52)
[2022-03-13] MEDS: Enoxaparin Sodium 40 MG/0.4 ML SYRINGE SC SCH (07:53)
[2022-03-13] MEDS: Vancomycin HCl 750 MG in Sodium Chloride 0.9% 250 ML 250 ML IVPB SCH ×2 (11:41→21:29)
[2022-03-13 14:35] VITALS: BMI 20.2
[2022-03-13 17:22] VITALS: BP 96/66
[2022-03-13 20:30] LABS: Vancomycin, Trough 16.8 ug/mL
[2022-03-13] MEDS: Atorvastatin Calcium 40 MG TAB PO SCH (21:27)
[2022-03-14 03:56] LABS: Calc. Creatinine Clearance 97 mL/min (70-130)
[2022-03-14] MEDS: HYDROcodone/Acetaminophen 10/325 mg Tablet PO PRN ×2 (03:56→15:54)
[2022-03-14 07:27] VITALS: TEMP 96.5
[2022-03-14] MEDS: Enoxaparin Sodium 40 MG/0.4 ML SYRINGE SC SCH (08:48)
[2022-03-14] MEDS: Meropenem 1 GM in Sodium Chloride 0.9% 100 ML IVPB SCH ×2 (08:48→15:55)
[2022-03-14] MEDS: Aspirin 81 mg Enteric Coated Tablet PO SCH (08:49)
[2022-03-14] MEDS: Furosemide 40 MG TAB PO SCH (08:49)
[2022-03-14] MEDS: Potassium Chloride 20 MEQ TAB PO SCH (08:49)
[2022-03-14] MEDS: Clopidogrel Bisulfate 75 MG TAB PO SCH (08:49)
[2022-03-14] MEDS: Losartan 25 MG TAB PO SCH (08:49)
[2022-03-14] MEDS: Carvedilol 6.25 MG TAB PO SCH (08:49)
[2022-03-14] MEDS: Methimazole 5 MG TAB PO SCH (08:49)
[2022-03-14] MEDS: Multivit, Therapeutic 1 TAB PO SCH (08:49)
[2022-03-14] MEDS: Gabapentin 300 MG CAP PO SCH (08:50)
[2022-03-14] MEDS: Tamsulosin HCl 0.4 MG CAP PO SCH (08:50)
[2022-03-14] MEDS: Vancomycin HCl 750 MG in Sodium Chloride 0.9% 250 ML 250 ML IVPB SCH (12:56)
[2022-03-14 15:19] LABS: SARS-CoV-2 PCR by NAA Not Detected (NotDetected)
== END 2022-03-14 16:25 | DRG 240 ==
LOC: ERS 14:16 → T4-A 17:39 → IMCU/EMU 03-11 13:52
PROVIDERS: ADMIT Internal Medicine; ATTEND Internal Medicine
PROC: 0Y6D0Z3 Detachment at Left Upper Leg, Low, Open Approach (ICD-10-PCS; principal; 2022-03-11)
DX: I70.262 Atherosclerosis of native arteries of extremities with gangrene, left leg (principal); Z66 Do not resuscitate; Z20.822 Contact with and (suspected) exposure to COVID-19; L03.116 Cellulitis of left lower limb; I50.22 Chronic systolic (congestive) heart failure; E44.0 Moderate protein-calorie malnutrition; N17.9 Acute kidney failure, unspecified; I70.92 Chronic total occlusion of artery of the extremities; L97.529 Non-pressure chronic ulcer of other part of left foot with unspecified severity; E78.5 Hyperlipidemia, unspecified; E78.00 Pure hypercholesterolemia, unspecified; F12.10 Cannabis abuse, uncomplicated; E87.6 Hypokalemia; I25.10 Atherosclerotic heart disease of native coronary artery without angina pectoris; E05.90 Thyrotoxicosis, unspecified without thyrotoxic crisis or storm; I87.2 Venous insufficiency (chronic) (peripheral); I25.5 Ischemic cardiomyopathy; F41.9 Anxiety disorder, unspecified; F32.A Depression, unspecified; I48.0 Paroxysmal atrial fibrillation; I10 Essential (primary) hypertension; N40.1 Benign prostatic hyperplasia with lower urinary tract symptoms; R33.8 Other retention of urine; K59.00 Constipation, unspecified; Z68.20 Body mass index [BMI] 20.0-20.9, adult; Z79.899 Other long term (current) drug therapy; Z79.02 Long term (current) use of antithrombotics/antiplatelets; Z79.82 Long term (current) use of aspirin; I25.2 Old myocardial infarction; Z86.73 Personal history of transient ischemic attack (TIA), and cerebral infarction without residual deficits; Z95.1 Presence of aortocoronary bypass graft; Z87.891 Personal history of nicotine dependence; Z95.828 Presence of other vascular implants and grafts; Z91.19 Patient's noncompliance with other medical treatment and regimen
CPT/HCPCS: 36415; 36416; 80048; 80053; 80202; 82565; 83036; 83735; 85014; 85018; 85025; 85027; 88307; 88311; 93005; 93010; 96365; 96375; J0692; J1100; J1642; J1650; J2185; J2250; J2270; J2370; J2405; J3010; J3370; J3475; J3490; J7050; U0003; U0005